=== PATIENT | female | born 1975 | race Caucasian/White ===

== ENCOUNTER → 2020-11-15 07:32 | Outpatient (CLI) | payer OTHER, SELFPAY ==
--- NOTE | 2020-11-15 | CA_ITS ---
APPROVED REPORT Exam: Exercise Treadmill Technologist: Kayce Snider, Ht: 5 ft 5 in Wt: 290 lbs BSA: 2.32 m2 HR: 94 bpm BP: 163/80 mmHg Medical History Medications: Omeprazole,,,,, Lasix,,,,, PaXIL,,,,, Provigil,,,,, Stress Test Details Test: Jimmie HR Resting HR: 96 bpm Max Heart Rate (APMHR): 175.667800 bpm Max HR Achieved: 155 bpm Target HR (85% APMHR): 148.664966 bpm % of APMHR: 88.57 Recovery HR: 102 bpm BP Resting BP: 175/100 mmHg Max BP: 222/100 mmHg Recovery BP: 164.0/94.0 mmHg ECG Resting ECG: NSR, normal Clinical Exercise duration: 02:36 min Highest Stage Achieved: Exercise capacity: 4.6 METs Stress ECG Conclusion Exercised 2:36 on Jimmie Protocol, stopping at Pt request due to SOA. Max HR 155 % of PM 89% Max BP 222/100 MET's 4.6 Test stopped due to SOA Symptoms: SOA/dyspnea and chest tightness. Arrhythmias/Ectopy: None. ST-T Changes: 1.5-2.0mm horizontal ST depression laterally and 1mm horizontal ST depression inferiorly. Conclusion: (+) GXT HTN Very poor exercise tolerance GXT only (no imaging) Test Summary REST . . . . . . . Sitting REST . . . . . . . Standing REST 06:55 0.0 0.0 96 . 175/100 . . Stage 1 01:00 10.0 1.7 120 . . . . Stage 1 02:00 10.0 1.7 144 . . . . Stage 1 02:36 10.0 1.7 150 . . . Stop exercise at 02:36 RECOVERY 01:00 0.0 0.0 135 . . . . RECOVERY 02:00 0.0 0.0 119 . 222/100 . . RECOVERY 03:00 0.0 0.0 109 . 222/100 . . RECOVERY 04:00 0.0 0.0 101 . 188/ 96 . . RECOVERY 05:00 0.0 0.0 92 . 188/ 96 . . RECOVERY 06:00 0.0 0.0 101 . 174/ 92 . . RECOVERY 07:00 0.0 0.0 94 . 174/ 92 . . RECOVERY 08:00 0.0 0.0 101 . 164/ 94 . . RECOVERY 09:00 0.0 0.0 95 . 164/ 94 . . RECOVERY 10:00 0.0 0.0 97 . 164/ 94 . . RECOVERY 11:00 0.0 0.0 101 . 164/ 94 . . RECOVERY 11:37 0.0 0.0 100 . 164/ 94 . . Electronically signed by : Brennan Pretty, 11/18/2020 11:08:58
== END ==
PROVIDERS: PCP Nurse Practitioner Family; Visit Provider Nurse Practitioner Family
DX: R06.02 Shortness of breath (principal)
CPT/HCPCS: 93017; 93306

== ENCOUNTER → 2020-11-27 17:15 | Outpatient (CLI) | payer OTHER, SELFPAY ==
[2020-11-27 18:24] LABS: Basophils # 0.1 K/mm3 (0-0.2); Basophils % 0.5 % (0.1-2.0); Eosinophils # 0.4 K/mm3 (0.0-0.4); Eosinophils % 2.5 % (0.1-12.0); Hematocrit 38.9 % (37.0-47.0); Lymphocytes # 2.6 K/mm3 (0.7-4.5); Lymphocytes % 17.2 % (10-50); Mean Corpuscular HGB Conc 33.3 g/dL (31.8-35.4); Mean Corpuscular Hemoglobin 29.4 pg (27.0-31.2); Mean Corpuscular Volume 88.4 fl (81-99); Mean Platelet Volume 7.6 fl (7.4-10.4); Monocytes # 0.7 K/mm3 (0.1-1.0); Monocytes % 4.4 % (1.7-9.3); Neutrophils # 11.4 K/mm3 (1.8-7.8); Neutrophils % 75.5 % (37.0-80.0); Platelet Count 452 K/mm3 (142-424); Red Cell Distribution Width 14.1 % (11.5-17.5); White Blood Count 15.1 K/mm3 (4.8-10.8)
[2020-11-27 18:39] LABS: MANUAL DIFFERENTIAL MANUAL DIFFERENTIAL (MANUAL DIFF)
[2020-11-27 19:03] LABS: Anion Gap 13.4 mEq/L (5-15); Blood Urea Nitrogen 13 mg/dl (7-17); Calcium 9.6 mg/dl (8.4-10.2); Carbon Dioxide 28 mmol/L (22.0-30.0); Chloride 98 mmol/L (98-107); Estimated Glomerular Filt Rate 90 ml/min (>60); GFR (African American) 109 ML/MIN (>60); Glucose 99 mg/dl (74-100); Potassium 4.4 mmoL/L (3.5-5.1); Sodium 135 mmol/L (136-145)
[2020-11-27 19:47] LABS: Eosinophils % 2 % (0-3); Lymphocytes % 16 % (10-50); Monocytes % 6 % (2-9); Neutrophils % 76 % (42-76); Total Cells Counted 100
[2020-11-27 19:48] LABS: Platelet Estimate Slight Increase
== END ==
PROVIDERS: Visit Provider Physician Assistant
DX: I20.9 Angina pectoris, unspecified (principal); I10 Essential (primary) hypertension; R63.5 Abnormal weight gain; R94.31 Abnormal electrocardiogram [ECG] [EKG]; R94.39 Abnormal result of other cardiovascular function study; Z78.9 Other specified health status; Z82.49 Family history of ischemic heart disease and other diseases of the circulatory system
CPT/HCPCS: 36415; 80048; 85007; 85025

== ENCOUNTER 2020-11-29 08:21 | Day surgery (SDC) | payer OTHER, SELFPAY ==
[2020-11-29] VITALS (12 sets, daily range): BP systolic 104–150; BP diastolic 58–90; PULSE 68–80; RESP 12–17; TEMP 36.9; O2SAT 93–96; BMI 48.7
--- NOTE | 2020-11-29 07:13 | IR_ITS ---
APPROVED REPORT Patient Location: Outpatient Speech Instructor: VERONIQUE Medrano RT (R) PROCEDURES Left heart catheterization Left ventriculogram Selective coronary angiogram INDICATION Crescendo angina, Abnormal stress test Informed consent was obtained prior to the procedure. COMPLICATIONS NONE Estimated Blood Loss: LESSS THAN 10 ML TECHNIQUE One percent lidocaine used to anesthetize the right anterior aspect of the wrist. The right radial artery was accessed via the Seldinger technique. A 6 Lithuanian sheath was placed in the right radial artery. 2.5 mg of verapamil, 800 mcg of nitroglycerin, 1mg Lidocaine and 5000 U Heparin were given through the arterial sheath. The trap catheter 4 Lithuanian JL4 and then a 5 Lithuanian JL 3.5 catheter were also used to perform left heart catheterization, left ventriculogram and selective coronary angiogram. At the end of the procedure the sheath was removed good hemostasis was achieved using Traclet band, patient was transferred to the postop holding area in stable condition. ANGIOGRAPHIC RESULTS The left main artery Normal The left anterior descending artery Normal The circumflex artery Normal The right coronary artery Dominant normal The GRAMAJO ventriculogram reveals Normal 65% The left ventricular end-diastolic pressure Elevated at 30 mmHg IMPRESSION Normal coronary arteries Normal ejection fraction Severely elevated LVEDP consistent with severe diastolic dysfunction which is the etiology for patient's angina PLAN 1. Fluid and salt restriction with specific attention at eliminating soft drinks/pop 2. Treatment of diastolic dysfunction 3. Weight loss 4. Evaluation of sleep apnea Electronically signed by : Jon Waggoner, 11/29/2020 10:24:17
== END 2020-11-29 12:25 | disposition home or self-care (01) ==
LOC: CATHLAB 08:22
PROVIDERS: PCP Nurse Practitioner Family; Visit Provider Internal Medicine
DX: I20.0 Unstable angina (principal); I10 Essential (primary) hypertension; R94.31 Abnormal electrocardiogram [ECG] [EKG]; Z82.49 Family history of ischemic heart disease and other diseases of the circulatory system; Z87.891 Personal history of nicotine dependence
CPT/HCPCS: 93458; 99152; 99153; C1725; C1769; J1644; Q9967

== ENCOUNTER → 2020-12-05 16:02 | Outpatient (CLI) | payer OTHER, SELFPAY ==
[2020-12-05 19:15] LABS: Anion Gap 15.1 mEq/L (5-15); Blood Urea Nitrogen 11 mg/dl (7-17); Calcium 9.1 mg/dl (8.4-10.2); Carbon Dioxide 29 mmol/L (22.0-30.0); Chloride 98 mmol/L (98-107); Estimated Glomerular Filt Rate 68 ml/min (>60); GFR (African American) 82 ML/MIN (>60); Glucose 94 mg/dl (74-100); Potassium 4.1 mmoL/L (3.5-5.1); Sodium 138 mmol/L (136-145)
== END ==
PROVIDERS: Visit Provider Urology
DX: R06.00 Dyspnea, unspecified (principal); I10 Essential (primary) hypertension; R94.31 Abnormal electrocardiogram [ECG] [EKG]; F17.200 Nicotine dependence, unspecified, uncomplicated; Z78.9 Other specified health status
CPT/HCPCS: 36415; 80048

== ENCOUNTER → 2020-12-18 15:25 | Outpatient (CLI) | payer OTHER, SELFPAY | PROVIDERS: PCP Nurse Practitioner Family; Visit Provider Urology | DX: G47.33 Obstructive sleep apnea (adult) (pediatric) (principal); R06.00 Dyspnea, unspecified; R40.0 Somnolence; R06.83 Snoring | CPT/HCPCS: G0399 ==

== ENCOUNTER → 2021-02-26 13:33 | Outpatient (CLI) | payer OTHER, SELFPAY ==
--- NOTE | 2021-02-26 13:33 | MR_ITS ---
PROCEDURE: MR LUMBAR SPINE WO CON CLINICAL INDICATION: Low back pain Bilateral leg pain COMPARISON: No exams were available for comparison TECHNIQUE: Standard multiplanar multiecho sequences are performed without contrast. 3-D MIP and myelographic images are also rendered and reviewed FINDINGS: There is normal alignment. Spinal cord ends at the L1 level. No acute fracture or dislocation. L1-L2: Unremarkable. L2-L3: Mild degenerative disc disease with minimal bulging disc and mild facet and ligamentum hypertrophy with mild bilateral lateral recess narrowing with mild canal stenosis L3-L4: Mild facet and ligamentum hypertrophy with mild bilateral lateral recess narrowing with mild canal stenosis L4-5: Mild facet and ligamentum hypertrophic change with mild bilateral lateral recess narrowing and mild bilateral foraminal narrowing with mild canal stenosis. L5-S1: Minimal bulging disc with facet and ligamentum hypertrophic change. There is a small left paracentral and a small foraminal disc protrusion contributing to the lateral recess narrowing on the left and also causing moderate left-sided foraminal narrowing. There is mild right foraminal narrowing. Canal stenosis noted at this level. No extruded herniated disc. 1.3 cm lipoma is present involving the L1 vertebral body On the most inferior axial images there is a complex rounded lesion measuring 5.9 cm. This could represent an unusual loop of bowel or an ovarian mass. Suggest pelvic ultrasound for further evaluation. IMPRESSION: 1. Mild multilevel lumbar spondylosis with facet and ligamentum hypertrophy and lateral recess and foraminal narrowing and multilevel mild canal stenosis. Please see above for detailed description at each level. No extruded herniated disc. 2. Possible right adnexal mass incompletely imaged versus unusual bowel loop. Pelvic ultrasound suggested for further evaluation. Dictated by: Tomi Leon MD 02/28/2021 07:32 Tomi Leon MD in [facility] 02/28/2021 07:32
== END ==
PROVIDERS: PCP Nurse Practitioner Family; Visit Provider Nurse Practitioner Family
DX: M54.5 Low back pain (principal); M54.9 Dorsalgia, unspecified
CPT/HCPCS: 72148; 76376

== ENCOUNTER → 2021-03-16 13:35 | Outpatient (CLI) | payer OTHER, SELFPAY ==
--- NOTE | 2021-03-16 13:39 | US_ITS ---
PROCEDURE: US TRANSVAGINAL CLINICAL INDICATION: abd pain Possible pelvic mass on recent MRI COMPARISON: MR MR LUMBAR SPINE WO CON from 02/26/2021 FINDINGS: UTERUS: 7cm x 5cmx 4cm with a combined endometrial thickness of 7.6mm. Nonspecific areas of increased echogenicity noted within the endometrium. LEFT OVARY: 8hcs6upd3.2cm with a volume of 8.6ml. 1.5 cm simple left ovarian cyst. RIGHT OVARY: There is a complex mass in the right adnexa measuring 9 x 6 cm with central increased echogenicity with some mild posterior shadowing and peripheral I so echogenicity. A dermoid tumor is considered. CT suggested for further evaluation and confirmation. No cul-de-sac fluid evident.. IMPRESSION: 9 x 6 cm right adnexal mass as described above which may represent a dermoid tumor. Suggest CT without and with contrast for further evaluation and confirmation. Nonspecific areas of increase echogenicity of the endometrium Dictated by: Tomi Leon MD 03/19/2021 09:51 Tomi Leon MD in [facility] 03/19/2021 09:51
== END ==
PROVIDERS: PCP Nurse Practitioner Family; Visit Provider Nurse Practitioner Family
DX: R10.9 Unspecified abdominal pain (principal)
CPT/HCPCS: 76830

== ENCOUNTER → 2021-03-20 09:53 | Outpatient (POV) | payer OTHER, SELFPAY ==
[2021-03-20 10:11] VITALS: BP 120/76; PULSE 75; RESP 18; O2SAT 95; BMI 45.7
--- NOTE | 2021-03-20 11:06 | HMH.PMCON ---
Assessment and Plan (1) Degenerative joint disease (DJD) of lumbar spine Status: Chronic Category: Medical Code(s): M47.816 - Spondylosis without myelopathy or radiculopathy, lumbar region (2) Lumbar radiculopathy Status: Chronic Category: Medical Code(s): M54.16 - Radiculopathy, lumbar region - Assessment and plan all Dx Assessment and Plan for all problems:: Patient is a 46-year-old white female who is here for low back pain with radiation into bilateral buttock and legs. She is not having any numbness or tingling, no changes in bowel or bladder habit, and no saddle anesthesia. Patient and I did discuss her MRI today. The MRI was performed on 02/26/2021. Per the MRI report, L5-S1?there is a small left paracentral and small foraminal disc protrusion current with lateral recess narrowing on the left and moderate left-sided foraminal narrowing. Canal stenosis was noted at that level. She was also noted to have mild facet and ligamentum hypertrophy throughout her lumbar spine, however, patient was negative for a Kemps test today. She was also negative for sacroiliitis. Patient gets relief with leaning forward. She does have pain in the low back bilateral buttock and into her legs stopping at the knee area. Patient is very nervous about undergoing injective therapy. She has tried physical therapy at the facility that she currently works. She has not gotten any significant relief. She does continue with home stretching. She has also tried ice and heat therapies. The patient is having spasms to her low back area. We will order her Flexeril 5 mg 1 tablet p.o. 3 times daily as needed for pain. Due to the patient's fear of the injection we discussed taking a one-time dose of Valium p.o. prior to her injection?1 hour. She would like to try this before the injection. She is not on any anticoagulation therapy. She is not diabetic. We will schedule her for a lumbar epidural steroid injection at the L5-S1 area. We will see the patient back afterwards for reevaluation symptoms. Possible side effects of corticosteroids have been discussed with the patient. Risks and benefits of the procedure have been explained to the patient. Patient would like to proceed with the procedure. Patient has been instructed to contact the clinic with any concerns before the next appointment. Dr. Magana has reviewed this note and agrees with this plan of care. This note was dictated using voice recognition software and make contain errors or omissions. HPI - Data of Consult Patient: new to practice Consult date: 03/20/21 Requesting Physician: Reva Morgan APRN - Consult Narrative Reason for consult: Low back pain History of present illness: Ms. Oliver is a 46 year old female who presents today for consultation for low back pain with radiation into lower extremities. Patient was referred by Joseph Villanueva APRN. The patient says that she has had chronic low back pain for years, however, in September 2020 the patient's pain significantly increased. 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 The pain is extreme in nature with a throbbing sensation that feels like loss of blood flow to the area . She reports that she recently stopped smoking. She was diagnosed with severe diastolic dysfunction. As well, she was diagnosed with GALA and Covid. Due to recent diagnoses, she has put her back pain on the back burner. She is now following up to try to get treatment for her low back area. She did have an MRI of her lumbar spine on 02/26/2021. She is attempted physical therapy in the facility that she works for more than 6 weeks and has gotten no significant relief. She has attempted home stretching as well as ice and heat. She does use ibuprofen and Tylenol with no significant relief. Patient does report that more
== END ==
PROVIDERS: Visit Provider Clinical Nurse Specialist Family Health
DX: M47.896 Other spondylosis, lumbar region (principal); M54.16 Radiculopathy, lumbar region
CPT/HCPCS: 99202; G0463

== ENCOUNTER → 2021-03-20 14:54 | Outpatient (CLI) | payer OTHER, SELFPAY ==
[2021-03-22 04:08] LABS: Cancer Antigen (CA) 125 14.3 U/mL (0.0-38.1); Estradiol 47.2 pg/mL (.); FSH 7.1 mIU/mL (.); Progesterone 0.3 ng/mL (.)
[2021-03-22 05:30] LABS: CA 19-9 50 U/mL (0-35)
== END ==
PROVIDERS: Visit Provider Obstetrics & Gynecology
DX: N94.89 Other specified conditions associated with female genital organs and menstrual cycle (principal)
CPT/HCPCS: 36415; 82670; 83001; 83002; 84144; 86316

== ENCOUNTER → 2021-03-28 09:24 | Outpatient (CLI) | payer OTHER, SELFPAY ==
--- NOTE | 2021-03-28 09:24 | CT_ITS ---
PROCEDURE: CT ABDOMEN PELVIS WO/W CON CLINICAL INDICATION: adnexal mass COMPARISON: US US TRANSVAGINAL from 03/16/2021 TECHNIQUE: IV Contrast: 75ML Isovue 370 Oral Contrast None Axial images obtained with sagittal and coronal reformats. All CT scans at the facility use one or more dose reduction, viz: automated exposure control, ma/kV adjustment per patient size (including targeted exams where dose is matched to indication, i.e. head), or iterative reconstruction technique. FINDINGS: LOWER THORAX: Minimal atelectatic or fibrotic change in the left lung base medially ABDOMEN & PELVIS: The liver, spleen, adrenal glands, and pancreas have an unremarkable appearance. There is some increased density along the fundus of the gallbladder anteriorly which could be due to small adherent stone or polyp. No intestinal obstruction or free air. There is thickening of the gastric mucosa possibly due to nondistention. No intestinal obstruction or free air. Unremarkable appendix. Nonobstructing 4 mm stone is present in the lower pole of the left kidney. No ureteral calculi. No hydronephrosis. A mixed fat soft tissue and calcium containing mass is present in the right adnexa measuring 7.5 cm AP, 7.2 cm transverse, and 6.3 cm cephalad caudad consistent with a mature cystic teratoma emanating from the right ovary. This lesion is well-circumscribed with central coarse calcification and may represent primordial teeth. No pelvic fluid collections. There are degenerative changes in the lower thoracic spine. No acute bony findings. IMPRESSION: 7 cm right adnexal mass as described above consistent with mature cystic teratoma Nonobstructing 4 mm left renal calculus. Possible small gallstone or polyp at the fundus of the gallbladder which could be confirmed with ultrasound if clinically warranted Dictated by: Tomi Leon MD 03/29/2021 09:08 Tomi Leon MD in [facility] 03/29/2021 09:08
== END ==
PROVIDERS: PCP Nurse Practitioner Family; Referring Provider Obstetrics & Gynecology; Visit Provider Nurse Practitioner Family
DX: N94.89 Other specified conditions associated with female genital organs and menstrual cycle (principal); R93.89 Abnormal findings on diagnostic imaging of other specified body structures
CPT/HCPCS: 74178; Q9967

== ENCOUNTER → 2021-05-06 15:58 | Outpatient (CLI) | payer OTHER, SELFPAY ==
[2021-05-06 17:20] LABS: Chloride 102 mmol/L (98-107); Sodium 136 mmol/L (136-145)
[2021-05-06 17:21] LABS: Potassium 3.4 mmoL/L (3.5-5.1)
[2021-05-06 17:23] LABS: Alanine Aminotransferase 23 U/L (12-78); Alkaline Phosphatase 83 U/L (38-126); Aspartate Amino Transferase 36 U/L (14-36); Bilirubin,Total 0.3 mg/dl (0.2-1.3); Blood Urea Nitrogen 6 mg/dl (7-17); Estimated Glomerular Filt Rate 90 ml/min (>60); GFR (African American) 109 ML/MIN (>60)
[2021-05-06 17:24] LABS: Albumin Level 4.2 g/dl (3.5-5.0); Albumin/Globulin Ratio 1.4 (1.1-1.8); Anion Gap 11.4 mEq/L (5-15); Calcium 9.3 mg/dl (8.4-10.2); Carbon Dioxide 26 mmol/L (22.0-30.0); Glucose 105 mg/dl (74-100); Total Protein,Serum 7.2 g/dl (6.3-8.2)
[2021-05-06 17:29] LABS: Basophils # 0.1 K/mm3 (0-0.2); Basophils % 0.5 % (0.1-2.0); Eosinophils # 0.4 K/mm3 (0.0-0.4); Hematocrit 38.2 % (37.0-47.0); Hemoglobin 12.8 g/dL (12.2-16.2); Lymphocytes # 2.2 K/mm3 (0.7-4.5); Lymphocytes % 10.7 % (10-50); Mean Corpuscular HGB Conc 33.6 g/dL (31.8-35.4); Mean Corpuscular Hemoglobin 29.8 pg (27.0-31.2); Mean Corpuscular Volume 88.8 fl (81-99); Monocytes % 4.8 % (1.7-9.3); Neutrophils # 16.9 K/mm3 (1.8-7.8); Neutrophils % 81.9 % (37.0-80.0); Platelet Count 478 K/mm3 (142-424); Red Cell Distribution Width 13.8 % (11.5-17.5); White Blood Count 20.7 K/mm3 (4.8-10.8)
[2021-05-06 17:31] LABS: MANUAL DIFFERENTIAL MANUAL DIFFERENTIAL (MANUAL DIFF)
[2021-05-06 18:00] LABS: Eosinophils % 1 % (0-3); Lymphocytes % 11 % (10-50); Monocytes % 3 % (2-9); Neutrophils % 85 % (42-76); Platelet Estimate Slight Increase; RBC Morphology Normal; Total Cells Counted 100
--- NOTE | 2021-05-08 14:55 | PC.NURSE ---
pt. notified of positive test result.
== END ==
PROVIDERS: PCP Nurse Practitioner Family; Visit Provider Obstetrics & Gynecology
DX: Z01.818 Encounter for other preprocedural examination (principal); Z11.52 Encounter for screening for COVID-19; U07.1 COVID-19
CPT/HCPCS: 36415; 80053; 85007; 85025; 86850; C9803; U0003; U0005

== ENCOUNTER → 2021-05-09 11:27 | Outpatient (CLI) | payer OTHER, SELFPAY ==
--- NOTE | 2021-05-09 11:29 | XR_ITS ---
PROCEDURE: XR CHEST 2V CLINICAL HISTORY: Elevated WBC COMPARISON: No exams were available for comparison FINDINGS: The cardiomediastinal silhouette and pulmonary vascularity are within normal limits. The lungs are clear without infiltrates, suspicious nodules, or pleural effusions. Mild degenerative changes thoracic spine. Minimal thoracic curvature convex right.. IMPRESSION: No acute findings. Dictated by: Tomi Leon MD 05/09/2021 13:00 Tomi Leon MD in [facility] 05/09/2021 13:00
== END ==
PROVIDERS: PCP Nurse Practitioner Family; Visit Provider Nurse Practitioner Family
DX: D72.829 Elevated white blood cell count, unspecified (principal)
CPT/HCPCS: 71046

== ENCOUNTER → 2021-05-09 15:46 | Outpatient (CLI) | payer OTHER, SELFPAY ==
[2021-05-09 16:01] LABS: Basophils # 0.3 K/mm3 (0-0.2); Basophils % 1.5 % (0.1-2.0); Eosinophils # 0.4 K/mm3 (0.0-0.4); Eosinophils % 2.2 % (0.1-12.0); Hematocrit 41.7 % (37.0-47.0); Hemoglobin 13.7 g/dL (12.2-16.2); Lymphocytes # 2.1 K/mm3 (0.7-4.5); Lymphocytes % 12.9 % (10-50); Mean Corpuscular HGB Conc 32.8 g/dL (31.8-35.4); Mean Corpuscular Hemoglobin 29.6 pg (27.0-31.2); Mean Corpuscular Volume 90.2 fl (81-99); Mean Platelet Volume 9.5 fl (7.4-10.4); Monocytes # 0.9 K/mm3 (0.1-1.0); Monocytes % 5.3 % (1.7-9.3); Neutrophils % 78.2 % (37.0-80.0); Platelet Count 559 K/mm3 (142-424); Red Blood Count 4.62 M/mm3 (4.20-5.40); White Blood Count 16.6 K/mm3 (4.8-10.8)
[2021-05-09 16:03] LABS: MANUAL DIFFERENTIAL MANUAL DIFFERENTIAL (MANUAL DIFF)
[2021-05-09 16:48] LABS: C-Reactive Protein 31.6 mg/L (0-4)
[2021-05-09 17:08] LABS: Erythrocyte Sedimentation Rate 26 mm/hr (0-20)
[2021-05-09 18:10] LABS: Eosinophils % 1 % (0-3); Lymphocytes % 22 % (10-50); Monocytes % 3 % (2-9); Neutrophils % 74 % (42-76); Platelet Estimate Moderate Increase; RBC Morphology Normal; Total Cells Counted 100
== END ==
PROVIDERS: Visit Provider Nurse Practitioner Family
DX: Z20.822 Contact with and (suspected) exposure to COVID-19 (principal); D72.829 Elevated white blood cell count, unspecified
CPT/HCPCS: 85007; 85025; 85651; 86140; 87086; C9803; U0003; U0005

== ENCOUNTER → 2021-05-29 09:12 | Outpatient (CLI) | payer OTHER, SELFPAY ==
[2021-05-29 09:40] LABS: Basophils # 0.1 K/mm3 (0-0.2); Basophils % 0.6 % (0.1-2.0); Eosinophils # 0.3 K/mm3 (0.0-0.4); Eosinophils % 2.4 % (0.1-12.0); Hematocrit 41.2 % (37.0-47.0); Hemoglobin 13.4 g/dL (12.2-16.2); Lymphocytes # 2.2 K/mm3 (0.7-4.5); Lymphocytes % 15.5 % (10-50); Mean Corpuscular HGB Conc 32.6 g/dL (31.8-35.4); Mean Corpuscular Hemoglobin 28.8 pg (27.0-31.2); Mean Corpuscular Volume 88.6 fl (81-99); Monocytes # 0.8 K/mm3 (0.1-1.0); Monocytes % 5.3 % (1.7-9.3); Neutrophils % 76.2 % (37.0-80.0); Platelet Count 503 K/mm3 (142-424); Red Blood Count 4.65 M/mm3 (4.20-5.40); Red Cell Distribution Width 13.5 % (11.5-17.5); White Blood Count 14.4 K/mm3 (4.8-10.8)
[2021-05-29 10:39] LABS: Alanine Aminotransferase 20 U/L (12-78); Albumin Level 4.1 g/dl (3.5-5.0); Albumin/Globulin Ratio 1.4 (1.1-1.8); Alkaline Phosphatase 80 U/L (38-126); Aspartate Amino Transferase 23 U/L (14-36); Bilirubin,Total 0.3 mg/dl (0.2-1.3); Blood Urea Nitrogen 7 mg/dl (7-17); Calcium 9.7 mg/dl (8.4-10.2); Carbon Dioxide 30 mmol/L (22.0-30.0); Chloride 100 mmol/L (98-107); Estimated Glomerular Filt Rate 90 ml/min (>60); GFR (African American) 109 ML/MIN (>60); Globulin 2.9 g/dL (1.3-3.2); Glucose 108 mg/dl (74-100); Sodium 135 mmol/L (136-145)
[2021-05-29 11:10] LABS: Phencyclidine Screen,Urine Negative ng/ml (<25)
[2021-05-29 11:13] LABS: Amphetamine/Metha Screen,Urine Negative ng/ml (<1000); HCG,Quantitative < 2 mIU/ml (0-5.42)
[2021-05-29 11:15] LABS: Barbiturates Screen,Urine Negative ng/ml (<200)
[2021-05-29 11:16] LABS: Benzodiazepines Screen,Urine Negative ng/ml (<200)
[2021-05-29 11:17] LABS: Cannabinoid Screen,Urine Negative ng/ml (<50); Cocaine Screen,Urine Negative ng/ml (<300)
[2021-05-29 11:18] LABS: Methadone Screen,Urine Negative ng/ml (<300); Opiate Screen,Urine Positive ng/ml (<300)
== END ==
PROVIDERS: Visit Provider Obstetrics & Gynecology
DX: Z01.818 Encounter for other preprocedural examination (principal); N92.0 Excessive and frequent menstruation with regular cycle
CPT/HCPCS: 36415; 80053; 80305; 84702; 85025

== ENCOUNTER 2021-05-31 06:18 | Inpatient (IN) | payer OTHER, SELFPAY ==
[2021-05-02 12:46] VITALS: BMI 44.1
[2021-05-30 10:14] VITALS: BMI 44.1
--- NOTE | 2021-05-30 10:16 | SUR.PREOP ---
Dr. Rausch notified via phone of + drug screen and elevated WBC
[2021-05-31] VITALS (23 sets, daily range): BP systolic 89–137; BP diastolic 43–84; PULSE 63–88; RESP 13–18; TEMP 36.1–43; O2SAT 92–96
[2021-05-31 06:30] LABS: Coronavirus 19, PCR Not Detected (NotDetected); Influenza A, PCR Not Detected (NotDetected); Influenza B, PCR Not Detected (NotDetected)
--- NOTE | 2021-05-31 07:19 | HMH.ANESCL ---
[facility] Anesthesia Checklist - Patient Identification Patient Identification: Arm Band - Structural Data Admitted From: Home Planned Operative Procedure/s: REYNOLD Consent for Planned Operative Procedure(s) Verified: Yes - NPO Status Verified Time NPO: 00:00 - Additional verifications Anesthesia Reactions: No Hx Blood Transfusions: No Blood Transfusion Reaction: No - Airway Assessment C-Spine Mobility Assessed: Yes TMJ Mobility Assessed: Yes Dentition: Edentulous - Neurological Assessment Level of Consciousness: Awake Hx Seizures: No Numbness or tingling in extremities: No - Anesthesia Plan Anesthesia Risk discussed: Yes Anesthesia Plan: Verified ASA Class: III Anesthesia Type: General [facility] History I have reviewed the patient's past medical history: Yes Medical History: Reports:: Anxiety, Asthma, Chronic Obstructive Pulmonary Disease (COPD), Coronary Artery Disease, Depression, Hypertension, Kidney Stones, Migraine, Palpitations, Urinary Tract Infection Denies:: Cancer, Diabetes Mellitus Type 1, Diabetes Mellitus Type 2, Internal Pacemaker, MRSA, Seizures *Have you ever received a pneumonia vaccine?: No *Have you received a flu vaccine this season?: No Other Medical History: Reports: Arthritis, Other (Diastolic dysfuction). Denies: Blood Transfusion Reaction Anesthesia experience/problems:: None Laterality Cases: Left: Arthroscopy Knee, Bilateral: Tonsillectomy Other Surgeries: Yes: Cardiac Catheterization, , Hernia Repair, Other. No: Pacemaker Amputation: No Fractures: No - *Social History Last grade of school completed: High school graduate Smoking Status: Current every day smoker Tobacco Type: cigarettes # Packs/Day (cigarettes): 1 Alcohol Intake: current Alcohol Intake Frequency:: holidays/special occasions only Substance Use Type: denies use *Occupational Status:: employed Housing: house Household Members: spouse *Travel in the last 8 weeks: None - Psychiatric History Pschychiatric History:: Reports:: Anxiety, Depression Family Hx:: Coronary Artery Disease, Diabetes
--- NOTE | 2021-05-31 07:38 | HMH.HP ---
*Admission Date: 05/31/21 *Chief complaint: Pelvic Mass, Heavy Menstrual Bleeding *History of present illness: 46 yo Pelvic mass on ultrasound 03/16/21: 9x6cm, complex Mass appearance consistent with dermoid Follow up CT 03/28 showed mixed fatty softy tissue and calcium containing mass in right adnexa measuring 7.5x7.2x6.3cm mass c/w mature cystic teratoma Patient reports that she has known about this suspected dermoid tumor for several years, after evaluation at [place] in [facility] She is having pelvic pain and is ready to have mass removed; she declines to preserve normal left ovary She is also heavy bleeding and would like uterus removed at same time She was counseled extensively about the differences between a laparotomy with oophorectomy and a REYNOLD/BSO, along with the increased surgical risks posed by her obesity, previous 3 c sections and chronic tobacco abuse She was counseled regarding surgical menopause and the option of starting estrogen postoperatively; she declines to begin hormone therapy at this time and will reassess at office postop visit This surgery was originally scheduled for April 2021, but was cancelled because of positive covid test with preop labs She was asymptomatic at the time, but WBC was 20.1 on 05/06/21 She was sent to PCP for evaluation and preop clearance CXR was negative and WBC has trended downward since that time: 16.6 on 05/09 and 14.4 [facility] History I have reviewed the patient's past medical history: Yes Medical History: Reports:: Anxiety, Asthma, Chronic Obstructive Pulmonary Disease (COPD), Coronary Artery Disease, Depression, Hypertension, Kidney Stones, Migraine, Palpitations, Urinary Tract Infection Denies:: Cancer, Diabetes Mellitus Type 1, Diabetes Mellitus Type 2, Internal Pacemaker, MRSA, Seizures *Have you ever received a pneumonia vaccine?: No *Have you received a flu vaccine this season?: No Other Medical History: Reports: Arthritis, Other (Diastolic dysfuction). Denies: Blood Transfusion Reaction Anesthesia experience/problems:: None Laterality Cases: Left: Arthroscopy Knee, Bilateral: Tonsillectomy Other Surgeries: Yes: Cardiac Catheterization, , Hernia Repair, Other. No: Pacemaker Amputation: No Fractures: No - *Social History Last grade of school completed: High school graduate Smoking Status: Current every day smoker Tobacco Type: cigarettes # Packs/Day (cigarettes): 1 Alcohol Intake: current Alcohol Intake Frequency:: holidays/special occasions only Substance Use Type: denies use *Occupational Status:: employed Housing: house Household Members: spouse *Travel in the last 8 weeks: None - Psychiatric History Pschychiatric History:: Reports:: Anxiety, Depression Family Hx:: Coronary Artery Disease, Diabetes Review of Systems - Review of Systems Review of systems:: pertinent systems reviewed and negative unless documented below - *Genitourinary Reports heavy periods, Reports pelvic pain Meds Home Medications Medication Instructions Recorded Confirmed Type modafinil 100 mg tablet 100 mg PO DAILY 11/07/20 05/31/21 History omeprazole 40 mg capsule,delayed 40 mg PO DAILY 11/07/20 05/31/21 History release alprazolam 0.5 mg tablet 0.5 mg PO TID PRN 11/20/20 05/31/21 History paroxetine HCl 10 mg tablet 10 mg PO DAILY tab 11/20/20 05/31/21 History Spironolactone [Aldactone 100mg 100 mg PO DAILY 11/29/20 05/31/21 History Tab] desvenlafaxine succinate 50 mg 50 mg PO DAILY 03/28/21 05/31/21 History tablet,extended release 24 hr furosemide 80 mg tablet 40 mg PO DAILY tab 03/28/21 05/31/21 History Umeclidinium Brm/Vilanterol Tr 1 inh INHALATION DAILY 05/02/21 05/31/21 History [Anoro Ellipta] bisoproloL fumarate [Bisoprolol 5 mg PO DAILY 05/02/21 05/31/21 History Fumarate] albuterol sulfate 90 mcg/actuation 1 inh INHALATION Q6H PRN #8.5 g 05/25/21 05/31/21 Rx aerosol inhaler Hydrocodone/Acetaminophen 1 tab PO BID PRN 05/30/21 05/31/21 History [Hydrocodo
--- NOTE | 2021-05-31 09:06 | HMH.PHAINT ---
MEDICATION RECONCILIATION COMPLETE USING LIST FROM MD OFFICE AND EXTERNAL PHARMACY FILL/DEIDRE HISTORY.
--- NOTE | 2021-05-31 11:02 | HMH.ANESI ---
[facility] Anesthesia Record Part I Intake, IV Amount: 1,000 Estimated blood loss (mL): 200 Urine output (mL): 100 Blood Pressure: 106/56 SaO2: 92 Pulse Rate: 83 Respiratory Rate: 13 Temperature: 97 F Patient is:: Drowsy, Oral/Nasal airway Stable to PACU at:: 10:59
[2021-05-31 11:26] LABS: Microscopic,Cath URINE MICROSCOPIC (MICROSCOPIC)
[2021-05-31 11:34] LABS: Appearance,Urine/Cath CLOUDY (Clear); Bilirubin,Cath Negative (Negative); Blood, Urine/Cath 1+ (Negative); Color,Urine/Cath YELLOW (Yellow); Glucose,Urine/Cath (UA) Negative (Negative); Ketones,Urine/Cath Negative (Negative); Leukocyte Esterase,Cath Negative (Negative); Nitrate,Cath Negative (Negative); PH,Urine/Cath 6.5 (5.0-8.5); Protein,Urine/Cath Negative (Negative); Urobilinogen,Cath 0.2 EU/dl (0.2)
--- NOTE | 2021-05-31 11:34 | SUR.PHASEI ---
1129- detailed report given to reno aggarwal on OB unit at this time.
[2021-05-31 11:53] LABS: Amorphous Sediment,Ur/Cath 2+ /lpf; Bacteria,Urine/Cath 1+ /lpf
--- NOTE | 2021-05-31 12:51 | HMH.OPNOTE ---
Date of procedure: 05/31/21 Pre-op Diagnosis:: 1. Right adnexal mass 2. Heavy menstrual bleeding 3. Previous c section x 3 4. Morbid obesity 5. Tobacco abuse Post-op Diagnosis:: 1. Right adnexal mass 2. Heavy menstrual bleeding 3. Previous c section x 3 4. Morbid obesity 5. Tobacco abuse 6. Pelvic adhesions Procedure performed:: Exploratory laparotomy, supracervical hysterectomy, bilateral salpingo-oophorectomy. lysis of dense adhesions Surgeon:: Chioma Rausch MD RADIOSONDE SPECIALIST:: Pascale Jon Anesthesia: GETA Estimated blood loss (mL): 200 Operative findings:: 10cm right adnexal mass normal appearing left ovary dense vesico-uterine adhesions Operative note:: The patient was taken to the operating room and general anesthesia was administered without difficulty. She was prepped and draped in the supine position. A midline skin incision was made with a scalpel inferior to the umbilicus and carried down to the underlying layer of fascia. The fascia was incised in the midline and extended sharply. The rectus muscles were sharply dissected off the fascia and in the midline. The peritoneum was turned and sharply, with good visualization of the underlying structures. The peritoneal incision was extended bluntly. A survey of the patient's pelvis and abdomen revealed a large right adnexal mass and normal left ovary. The uterus was small, with dense vesicouterine adhesions. At this time, the patient was placed in Trendelenburg and an O'Kash-O'Collins retractor was placed in the abdomen; the bowel was packed with moist laparotomy sponges. While packing the bowel, some omental adhesions were taken down with sharp and blunt dissection. One 3cm piece of omentum was abnormally firm and was excised during the adhesion lysis. Because of the unusual texture of this specimen, it was also sent for pathology. The right adnexal mass was excised without complication using the Enseal. The mass appeared to be fat filled, consistent with a dermoid. A double tooth tenaculum was placed on the uterine fundus and the uterus was elevated out of the pelvis. No fibroids or other visible uterine lesions were noted, but the bladder was densely adhesed up to the lower uterine segment. The round ligaments were identified and transected and suture-ligated. The anterior lip of the broad ligament was dissected medially on both sides and the bladder flap was created digitally. Sharp and blunt dissection of the bladder was extensive, but uncomplicated. The posterior leaf of the broad ligament was dissected until the ureters were able to be identified on either side and noted to be free of the forthcoming adnexal pedicles. The left infundibulopelvic ligaments was doubly clamped transected and suture ligated, lateral to the ovary. The fallopian tube and ovary were excised and were set aside for pathology. The uterine arteries were skeletonized on either side, and were clamped, transected and suture ligated with excellent hemostasis. The bladder flap was further bluntly dissected off the lower uterine segment with excellent hemostasis and without injury to the bladder, however dense adhesions precluded successful dissection in order to remove the cervix with the uterus, so a decision was made to proceed with a supracervical hysterectomy. The uterus was amputated below the internal os and the uterus was set aside for pathology. The cervical stump was oversewn with 0-vicryl in an interrupted fashion. The pelvis was copiously irrigated with a solution of sterile water. All pedicles were reexamined and remained hemostatic. Surgicel was placed over the cervical stump. All instruments were removed from the patient's abdomen. The fascia was closed with 0 PDS in a running fashion. The subcutaneous fat was closed with 2-0 vicryl in an interrupted fashion. The skin was closed with psacual. Sponge/lap/needle and instrument counts were correct ?2. TAP block was place
--- NOTE | 2021-05-31 13:47 | PC.NURSE ---
11:30 Report received from Maggie RECORD PRESS TENDER.
--- NOTE | 2021-05-31 13:48 | PC.NURSE ---
11:43 Pt. arrived to room 279 via bed, accompanied by PACU staff x2. Nurse to room with pt. 11:45 Post-op Vitals started. Pt. reports pain only when coughing, denies needs, IS in room nurse educated pt. on use. Nurse educated pt. on Post-op routine. Pt. v/u. Pt. reports feeling sleepy, lights dimmed, will continue to monitor.
[2021-05-31 20:54] LABS: Hematocrit 35.9 % (37.0-47.0); Hemoglobin 11.3 g/dL (12.2-16.2)
--- NOTE | 2021-05-31 21:35 | PC.NURSE ---
Addendum entered by Blaine Rosenthal RN 05/31/21 21:36: MD notified at 2110 Original Note: Dr. Agosto notified of pts H&H. orders given to monitor urine output throughout the night and increase PO fluid intake and IV fluid infusion rate. Orders v/r
[2021-06-01] VITALS (8 sets, daily range): BP systolic 102–124; BP diastolic 52–66; PULSE 73–92; RESP 17–20; TEMP 36.4–37.1; O2SAT 95–97
--- NOTE | 2021-06-01 04:39 | PC.NURSE ---
Pt has slept in intervals this shift. Inspiratory wheezing throughout Rt side. Lungs CTA on Lt side. Bowel sounds present in all 4 quadrants. IV patent and infusing well. Midline dressing C/D/I. abdomen soft and tender. duarte in place and draining yellow urine. Thigh-high scuds in place. Pt is on RA and is tolerating PO liquids. Urine output has increased since beginning of the shift. Pt denies SOA, headache, N/V. Pt medicated this shift for pain per eMAR. VSS.
[2021-06-01 07:16] LABS: Basophils # 0.1 K/mm3 (0-0.2); Basophils % 0.4 % (0.1-2.0); Eosinophils # 0.1 K/mm3 (0.0-0.4); Eosinophils % 0.2 % (0.1-12.0); Hematocrit 34.6 % (37.0-47.0); Hemoglobin 10.9 g/dL (12.2-16.2); Lymphocytes # 1.9 K/mm3 (0.7-4.5); Mean Corpuscular HGB Conc 31.6 g/dL (31.8-35.4); Mean Corpuscular Hemoglobin 28.9 pg (27.0-31.2); Mean Corpuscular Volume 91.3 fl (81-99); Mean Platelet Volume 7.8 fl (7.4-10.4); Monocytes % 3.8 % (1.7-9.3); Neutrophils # 23.8 K/mm3 (1.8-7.8); Neutrophils % 88.6 % (37.0-80.0); Platelet Count 465 K/mm3 (142-424); Red Blood Count 3.79 M/mm3 (4.20-5.40); White Blood Count 26.8 K/mm3 (4.8-10.8)
[2021-06-01 07:32] LABS: MANUAL DIFFERENTIAL MANUAL DIFFERENTIAL (MANUAL DIFF)
[2021-06-01 07:53] LABS: Lymphocytes % 5 % (10-50); Monocytes % 1 % (2-9); Neutrophils % 94 % (42-76); Platelet Estimate Normal; Total Cells Counted 100
--- NOTE | 2021-06-01 10:02 | HMH.ACPN2 ---
Internal Medicine - PN: Subj *Date: 06/01/21 *Time: 10:03 Interval history: She is doing very well this morning. She is eating and drinking and ambulating. Her Concepcion catheter is out. She has put out a little more urine overnight. Her pain is reasonably well controlled. She does have some breakthrough pain and takes Percocets. She denies any nausea or vomiting. She denies any chest pain or shortness of breath. She denies any calf tenderness. Her incision is quite tender. Exam Vital signs and Labs for Last 24 Hours: Temp Pulse Resp BP Pulse Ox 98.7 F 88 18 118/57 L 95 06/01/21 04:00 06/01/21 04:00 06/01/21 04:00 06/01/21 04:00 06/01/21 09:34 Laboratory Results - last 24 hr 05/31/21 10:55: Urine Color Yellow, Urine Appearance Cloudy, Urine pH 6.5, Ur Specific [place] 1.020, Urine Protein Negative, Urine Glucose (UA) Negative, Urine Ketones Negative, Urine Blood 1+, Urine Nitrate Negative, Urine Bilirubin Negative, Urine Urobilinogen 0.2, Ur Leukocyte Esterase Negative, Urine RBC 3-5, Urine WBC 3-5, Ur Squamous Epith Cells 3-5, Urine Bacteria 1+ 05/31/21 20:45: Hgb 11.3 L, Hct 35.9 L 06/01/21 06:48: WBC 26.8 H* D, RBC 3.79 L, Hgb 10.9 L, Hct 34.6 L, MCV 91.3, MCH 28.9, MCHC 31.6 L, RDW 14.0, Plt Count 465 H, MPV 7.8, Neut % (Auto) 88.6 H, Lymph % (Auto) 7.0 L, [place] % (Auto) 3.8, Eos % (Auto) 0.2, Baso % (Auto) 0.4, Neut # (Auto) 23.8 H, Lymph # (Auto) 1.9, [place] # (Auto) 1.0, Eos # (Auto) 0.1, Baso # (Auto) 0.1, Total Counted 100, Neutrophils % (Manual) 94 H, Lymphocytes % (Manual) 5 L, Monocytes % (Manual) 1 L, Platelet Estimate Normal I & O for Last 24 hours: Intake & Output 12/21/21 12/22/21 12/23/21 12/24/21 11:59 11:59 11:59 11:59 Intake Total 1000 / 1000 Output Total 50 / 50 700 / 700 Balance 950 / 950 -700 / -700 Weight 265 lb - Constitutional no acute distress - *Routine HEENT Exam Head: Present: normocephalic Eye: Present: EOMI, PERRL ENT: Present: mucous membranes moist - *Routine Respiratory Exam Present: CTA bilaterally. Absent: accessory muscle use - *Routine Cardiovascular Exam Present: RRR - *Routine Abdominal Exam Present: soft, normoactive bowel sounds. Absent: tenderness Comments: Her incision is clean and dry. - *Routine Extremities Exam Absent: cyanosis, clubbing, edema, tenderness Assessment and Plan (1) Mass of uterine adnexa Status: Acute Category: Medical Code(s): N94.89 - Other specified conditions associated with female genital organs and menstrual cycle (2) Heavy menstrual bleeding Status: Acute Category: Medical Code(s): N92.0 - Excessive and frequent menstruation with regular cycle (3) Previous section Status: Acute Category: Surgical Code(s): Z98.891 - History of uterine scar from previous surgery (4) Morbid obesity with body mass index (BMI) of 45.0 to 49.9 in adult Status: Acute Category: Medical Code(s): E66.01 - Morbid (severe) obesity due to excess calories; Z68.42 - Body mass index [BMI] 45.0-49.9, adult (5) Tobacco dependence syndrome Status: Chronic Category: Medical Code(s): F17.200 - Nicotine dependence, unspecified, uncomplicated - Assessment and plan all Dx Assessment and Plan for all problems:: She is doing well this morning. We will start her omeprazole so she does not get heartburn. We will repeat her CBC in the morning. She always has slightly elevated white blood cell count and has been worked up for this and has had no findings as result of this.
--- NOTE | 2021-06-01 10:30 | PC.NURSE ---
Assisted pt up to the bathroom for the first time since removal of duarte catheter. Pt was dizzy initially upon standing up and attempting to ambulate. After a few seconds, pt ambulated to bathroom with assist x1 while holding on to IV pole. Urine measured in specimen collection hat. Pt voided 400mls bright yellow urine w/o difficulty. No vaginal bleeding noted. Pt assisted to sit in the rocking chair for a while.
--- NOTE | 2021-06-01 15:36 | PC.NURSE ---
No acute changes from previous assessment this morning. Pt is passing a very small amt of gas. +BS. Lungs clear. Continues bilat thigh high scuds. Tolerating regular diet. Has not required medication for nausea. IV fluids (LR) continues at 125ml/hr. IV site patent and infusing well. Pt does c/o heartburn. Will medicate with Omeprozole early. Has voided 500mls thus far since removal of f/c.
--- NOTE | 2021-06-01 21:37 | PC.NURSE ---
Dr. Agosto notified pt went to the bathroom and yelled out for help. Pt reports she had a small BM and was walking back to bed and noticed blood coming from her incision site. Upon entering room, pt's dressing was soaked with blood and blood was seeping out the bottom of the tegaderm. 4x4's and abd pads applied to site with tape. VSS
--- NOTE | 2021-06-01 22:15 | PC.NURSE ---
Pts pressure dressing remains C/D/I no bleeding noted, abdominal binder remains in place
--- NOTE | 2021-06-01 23:20 | PC.NURSE ---
pt denies any pain at this time. Abdominal binder in place, no active bleeding noted to pressure dressing
[2021-06-02 04:00] VITALS: BP 122/64; PULSE 80; RESP 17; TEMP 36.9; O2SAT 94
--- NOTE | 2021-06-02 04:25 | PC.NURSE ---
Pt has slept in intervals this shift. BLT lungs CTA, bowels sounds noted in all 4 quadrants. Pt is on RA and IV is patent and infusing well. thigh high scuds are in place. Pt abdomen is soft and tender. pressure dressing to pt's abdomen remains C/D/I. no drainage or bleeding noted. Pt has ambulated to the bathroom with stand-by assistance. Pt denies headache, N/V, or SOA. Pt has been medicated for pain, nausea, and heartburn per eMAR this shift. VSS
[2021-06-02 08:00] VITALS: BP 119/62; PULSE 71; RESP 18; TEMP 36.6; O2SAT 97
--- NOTE | 2021-06-02 08:17 | PC.NURSE ---
LAB AT BEDSIDE.
[2021-06-02 08:33] LABS: Basophils # 0.1 K/mm3 (0-0.2); Basophils % 0.6 % (0.1-2.0); Eosinophils # 0.2 K/mm3 (0.0-0.4); Eosinophils % 1.9 % (0.1-12.0); Hemoglobin 10.6 g/dL (12.2-16.2); Lymphocytes # 2.1 K/mm3 (0.7-4.5); Lymphocytes % 18.7 % (10-50); Mean Corpuscular HGB Conc 31.3 g/dL (31.8-35.4); Mean Corpuscular Hemoglobin 28.8 pg (27.0-31.2); Mean Corpuscular Volume 92.2 fl (81-99); Mean Platelet Volume 7.9 fl (7.4-10.4); Monocytes # 0.7 K/mm3 (0.1-1.0); Monocytes % 5.9 % (1.7-9.3); Neutrophils # 8.1 K/mm3 (1.8-7.8); Neutrophils % 72.9 % (37.0-80.0); Platelet Count 396 K/mm3 (142-424); Red Blood Count 3.68 M/mm3 (4.20-5.40); Red Cell Distribution Width 14.1 % (11.5-17.5); White Blood Count 11.1 K/mm3 (4.8-10.8)
[2021-06-02 08:44] LABS: Chloride 102 mmol/L (98-107); Potassium 3.3 mmoL/L (3.5-5.1); Sodium 136 mmol/L (136-145)
[2021-06-02 08:47] LABS: Anion Gap 8.3 mEq/L (5-15); Blood Urea Nitrogen 13 mg/dl (7-17); Carbon Dioxide 29 mmol/L (22.0-30.0); Creatinine Clearance Estimated 70 mL/min (50-200); Estimated Glomerular Filt Rate 67 ml/min (>60); GFR (African American) 82 ML/MIN (>60)
[2021-06-02 08:48] LABS: Calcium 8.2 mg/dl (8.4-10.2); Glucose 100 mg/dl (74-100)
--- NOTE | 2021-06-02 09:50 | PC.NURSE ---
DR. ALEMAN HERE FOR ROUNDING. REPORT GIVEN. MD REPORTS TO KEEP DRESSING AND BINDER ON UNTIL TOMORROW. R/V
--- NOTE | 2021-06-02 09:58 | HMH.ACPN2 ---
Internal Medicine - PN: Subj *Date: 06/02/21 *Time: 09:58 Interval history: She continues to do well. She is eating and drinking and ambulating. She is passing some gas. She denies any chest pain, shortness of breath or calf tenderness. She did have some bleeding from her incision last night but her hemoglobin has stabilized and her white count has come down. I have reassured her. I suspect she had a small subcutaneous hematoma that drained spontaneously. Exam Vital signs and Labs for Last 24 Hours: Temp Pulse Resp BP Pulse Ox 97.9 F 71 18 119/62 97 06/02/21 08:00 06/02/21 08:00 06/02/21 08:00 06/02/21 08:00 06/02/21 08:00 Laboratory Results - last 24 hr 06/02/21 08:21: Sodium 136, Potassium 3.3 L, Chloride 102, Carbon Dioxide 29, Anion Gap 8.3, BUN 13, Creatinine 0.90, Estimated Creat Clear 70, Estimated GFR 67, Est GFR ( Amer) 82, Glucose 100, Calcium 8.2 L 06/02/21 08:21: WBC 11.1 H D, RBC 3.68 L, Hgb 10.6 L, Hct 34.0 L, MCV 92.2, MCH 28.8, MCHC 31.3 L, RDW 14.1, Plt Count 396, MPV 7.9, Neut % (Auto) 72.9, Lymph % (Auto) 18.7, [place] % (Auto) 5.9, Eos % (Auto) 1.9, Baso % (Auto) 0.6, Neut # (Auto) 8.1 H, Lymph # (Auto) 2.1, [place] # (Auto) 0.7, Eos # (Auto) 0.2, Baso # (Auto) 0.1 I & O for Last 24 hours: Intake & Output 05/30/21 05/31/21 06/01/21 06/02/21 11:59 11:59 11:59 11:59 Intake Total 1000 / 1000 1000 / 1000 Output Total 50 / 50 1100 / 1100 1100 / 1100 Balance 950 / 950 -1100 / -1100 -100 / -100 Weight 265 lb - Constitutional no acute distress - *Routine HEENT Exam Head: Present: normocephalic Eye: Present: EOMI, PERRL ENT: Present: mucous membranes moist Assessment and Plan (1) Mass of uterine adnexa Status: Acute Category: Medical Code(s): N94.89 - Other specified conditions associated with female genital organs and menstrual cycle (2) Heavy menstrual bleeding Status: Acute Category: Medical Code(s): N92.0 - Excessive and frequent menstruation with regular cycle (3) Previous section Status: Acute Category: Surgical Code(s): Z98.891 - History of uterine scar from previous surgery (4) Morbid obesity with body mass index (BMI) of 45.0 to 49.9 in adult Status: Acute Category: Medical Code(s): E66.01 - Morbid (severe) obesity due to excess calories; Z68.42 - Body mass index [BMI] 45.0-49.9, adult (5) Tobacco dependence syndrome Status: Chronic Category: Medical Code(s): F17.200 - Nicotine dependence, unspecified, uncomplicated - Assessment and plan all Dx Assessment and Plan for all problems:: She continues to do well. We will plan to send her home tomorrow.
[2021-06-02 12:00] VITALS: BP 105/56; PULSE 71; RESP 20; TEMP 36.8; O2SAT 95
--- NOTE | 2021-06-02 12:56 | PC.NURSE ---
NO CHANGES ON MY SHIFT. REPORT GIVEN TO Henry KELLER RN. DRESSING ASSESSED AGAIN- NO CHANGE FROM PREVIOUS ASSESSMENT. OLD BLOOD NOTED TO DRESSING. NO NEEDS VOICED TO NURSE.
[2021-06-02 16:00] VITALS: BP 121/72; PULSE 74; RESP 18; TEMP 36.9; O2SAT 95
[2021-06-02 20:30] VITALS: BP 130/66; PULSE 85; RESP 18; TEMP 37.1; O2SAT 95
--- NOTE | 2021-06-02 22:32 | PC.NURSE ---
UPON ENTERING ROOM,PT ASKED IF THE HAET COULD BE TURNED DOWN,THIS WAS DONE AND FAN WAS OFFERED AND PT SAID THAT WOULD BE NICE,FAN PROVIDED,PT REPORTS PAIN IS TOLERABLE AND DENIES ANY NEED FOR PAIN MEDICINE ,WILL CONTINUE TO MONITOR
[2021-06-03 00:42] VITALS: BP 115/68; PULSE 85; RESP 16; TEMP 36.9; O2SAT 92
--- NOTE | 2021-06-03 00:43 | PC.NURSE ---
UPON ENTERING ROOM,PT WAS SLEEPING,RESP.EVEN AND UNLABORED.V/S OBTAINED 115/68,P-85,R-16,T-98.5,SAT LEVEL 92% ON RA.ASKED PT IF SHE WAS SOA AND SHE SAID NO,PT REPORTS SHE WEARS A CPAP AT HOME.PT REPORTS SHE DOES NOT WANT TO PUT ANY OXYGEN ON ,PT DENIES ANY NEED FOR PAIN MEDICINE AT THIS TIME,WILL CONTINUE TO MONITOR,PT REPORTS THE FAN HAS HELPED ALOT
[2021-06-03 04:00] VITALS: BP 129/71; PULSE 76; RESP 18; TEMP 37; O2SAT 94
--- NOTE | 2021-06-03 04:17 | PC.NURSE ---
NO ACUTE CHANGES FROM PREVIOUS ASSESSMENT,LUNGS CLEAR ALL FRONT THIS MORNING,RESP.EVEN AND UNLABORED SAT LEVEL ON RA 94%,PT AFEBRILE,POSITIVE BOWEL SOUNDS X4 QUADS,NO NEW DRAINAGE TO DRESSING ,SEROUS,PT STILL HAS ABD BINDER ON.PT MEDICATE WITH OXYCODONE 5MG AND MOTRIN 800MG PO THIS MORNING FOR A PAIN OF 6 ON SCALE OF 0-10,PT VOIDING WITHOUT DIFF.PT REPORTS PASSING FLATUS AND SHE HAD REPORTED SHE HAD A BOWEL MOVEMENT YESTERDAY BEFORE SHIFT CHANGE.
[2021-06-03 07:34] LABS: MANUAL DIFFERENTIAL MANUAL DIFFERENTIAL (MANUAL DIFF)
[2021-06-03 07:47] LABS: Basophils # 0.1 K/mm3 (0-0.2); Basophils % 0.8 % (0.1-2.0); Eosinophils # 0.3 K/mm3 (0.0-0.4); Hematocrit 31.7 % (37.0-47.0); Hemoglobin 10.2 g/dL (12.2-16.2); Lymphocytes # 1.8 K/mm3 (0.7-4.5); Lymphocytes % 18.2 % (10-50); Mean Corpuscular HGB Conc 32.1 g/dL (31.8-35.4); Mean Corpuscular Hemoglobin 29.1 pg (27.0-31.2); Mean Corpuscular Volume 90.8 fl (81-99); Mean Platelet Volume 7.6 fl (7.4-10.4); Monocytes # 0.5 K/mm3 (0.1-1.0); Monocytes % 5.7 % (1.7-9.3); Neutrophils # 6.9 K/mm3 (1.8-7.8); Neutrophils % 72.3 % (37.0-80.0); Platelet Count 447 K/mm3 (142-424); Red Blood Count 3.49 M/mm3 (4.20-5.40); White Blood Count 9.6 K/mm3 (4.8-10.8)
[2021-06-03 07:52] LABS: Chloride 104 mmol/L (98-107); Potassium 3.5 mmoL/L (3.5-5.1); Sodium 139 mmol/L (136-145)
[2021-06-03 07:55] LABS: Blood Urea Nitrogen 9 mg/dl (7-17); Creatinine Clearance Estimated 90 mL/min (50-200); Estimated Glomerular Filt Rate 90 ml/min (>60); GFR (African American) 109 ML/MIN (>60)
[2021-06-03 07:56] LABS: Anion Gap 6.5 mEq/L (5-15); Calcium 8.2 mg/dl (8.4-10.2); Carbon Dioxide 32 mmol/L (22.0-30.0); Glucose 97 mg/dl (74-100)
[2021-06-03 08:15] VITALS: BP 133/78; PULSE 82; RESP 20; TEMP 36.7; O2SAT 95
--- NOTE | 2021-06-03 08:30 | PC.NURSE ---
Pressure dressing removed at this time- soaked abd pad and 4x4 and telfa. cleansed skin well with 1/2 peroxide and 1/2 ns. no active bleeding noted. bruising noted. reapplied sterile telfa and tegaderm to midline incision. pt tolerated well. education provided. will closely monitor drainage from this.
[2021-06-03 08:56] LABS: Eosinophils % 1 % (0-3); Lymphocytes % 18 % (10-50); Monocytes % 1 % (2-9); Neutrophils % 80 % (42-76); Platelet Estimate Slight Increase; RBC Morphology Normal; Total Cells Counted 100
--- NOTE | 2021-06-03 10:20 | PC.NURSE ---
DR. PERALES AT BEDSIDE
--- NOTE | 2021-06-03 10:26 | HMH.DCSUM ---
General - General Admission date:: 05/31/21 Discharge date: 06/03/21 HPI HPI: 46 yo Pelvic mass on ultrasound 03/16/21: 9x6cm, complex Mass appearance consistent with dermoid Follow up CT 03/28 showed mixed fatty softy tissue and calcium containing mass in right adnexa measuring 7.5x7.2x6.3cm mass c/w mature cystic teratoma Patient reports that she has known about this suspected dermoid tumor for several years, after evaluation at [facility] in [facility] She is having pelvic pain and is ready to have mass removed; she declines to preserve normal left ovary She is also heavy bleeding and would like uterus removed at same time She was counseled extensively about the differences between a laparotomy with oophorectomy and a REYNOLD/BSO, along with the increased surgical risks posed by her obesity, previous 3 c sections and chronic tobacco abuse She was counseled regarding surgical menopause and the option of starting estrogen postoperatively; she declines to begin hormone therapy at this time and will reassess at office postop visit This surgery was originally scheduled for April 2021, but was cancelled because of positive covid test with preop labs She was asymptomatic at the time, but WBC was 20.1 on 05/06/21 She was sent to PCP for evaluation and preop clearance CXR was negative and WBC has trended downward since that time: 16.6 on 05/09 and 14.4 Hospital Course Hospital Course: On May 31, 2021 she underwent a total abdominal hysterectomy and bilateral salpingo-oophorectomy through a midline incision. She had a large dermoid cyst on her ovary. She has done well postoperatively and has remained afebrile throughout her hospitalization. Her hemoglobin is stable at 10.2. Her white count has come down from 26-9. She denies any shortness of breath, calf tenderness or chest pain. Her incision is clean and dry. There is a small amount of bloody ooze and she will continue to keep it clean at home. We have given her a bottle of Hibiclens to take home to keep the area clean. She has pascual and will continue with these for the next couple of weeks. She was given the usual instructions with respect to limiting her activity, driving and sexual activity. She was given instructions with respect to wound care. She will continue with her home medications. She was given a prescription for Percocet 5/325 number 30 tablets. Her condition on discharge is stable and improved. Objective Vital signs: Temp Pulse Resp BP Pulse Ox 98.1 F 82 20 133/78 95 06/03/21 08:15 06/03/21 08:15 06/03/21 08:15 06/03/21 08:15 06/03/21 08:15 no acute distress - *Routine HEENT Exam Head: Present: normocephalic Eye: Present: EOMI, PERRL ENT: Present: mucous membranes moist - *Routine Neck Exam Present: supple - *Routine Abdominal Exam Present: soft, normoactive bowel sounds. Absent: tenderness Results Labs on day of discharge: Labs from last 24 hours 06/03/21 06/03/21 07:21 07:21 WBC 9.6 RBC 3.49 L Hgb 10.2 L Hct 31.7 L MCV 90.8 MCH 29.1 MCHC 32.1 RDW 14.0 Plt Count 447 H MPV 7.6 Neut % (Auto) 72.3 Lymph % (Auto) 18.2 [place] % (Auto) 5.7 Eos % (Auto) 3.0 Baso % (Auto) 0.8 Neut # (Auto) 6.9 Lymph # (Auto) 1.8 [place] # (Auto) 0.5 Eos # (Auto) 0.3 Baso # (Auto) 0.1 Total Counted 100 Neutrophils % (Manual) 80 H Lymphocytes % (Manual) 18 Monocytes % (Manual) 1 L Eosinophils % (Manual) 1 Platelet Estimate Slight increase RBC Morphology Normal Sodium 139 Potassium 3.5 Chloride 104 Carbon Dioxide 32 H Anion Gap 6.5 BUN 9 D Creatinine 0.70 D Estimated Creat Clear 90 Estimated GFR 90 Est GFR ( Amer) 109 D Glucose 97 Calcium 8.2 L DS: Diagnosis - Discharge Diagnosis (1) Mass of uterine adnexa Status: Acute (2) Heavy menstrual bleeding Status: Acute (3) Previous section Status: Acute
--- NOTE | 2021-06-03 10:45 | PC.NURSE ---
dressing changed again. no active bleeding. top of dressing saturated with serosang drainage. education provided.
--- NOTE | 2021-06-03 10:50 | PC.NURSE ---
discharge education provided at this time. educated thoroughly on wound care and monitoring for bleeding. also educated on pain control and restrictions. she v/u
--- NOTE | 2021-06-05 10:07 | P.PN_ITS ---
[facility] Anesthesia Record Part II Discharge Time: 11:29 Destination: Obstetric PACU nurse assessment reviewed?: Yes Patient Condition:: Good Anesthesia Complications:: None Swallowing reflex intact?: Yes Cyanosis?: No Blood Pressure: 125/66 Pulse Rate: 86 Temperature: 97 F Mental Status: Alert & Oriented Pain level:: 0 Nausea and/or vomitting:: None Intake, IV Amount: 0
[2021-06-05 10:08] VITALS: BP 125/66; PULSE 86; TEMP 36.1
== END 2021-06-03 10:58 | disposition home or self-care (01) | DRG 742 ==
LOC: OB 06:20
PROVIDERS: Nurse Practitioner Obstetrics & Gynecology; Admitting Provider Obstetrics & Gynecology; PCP Nurse Practitioner Family; Visit Provider Obstetrics & Gynecology
PROC: 0UT90ZZ Resection of Uterus, Open Approach (ICD-10-PCS; CPT 58150; principal; 2021-05-31 07:30)
DX: D27.0 Benign neoplasm of right ovary (principal); Z68.41 Body mass index [BMI] 40.0-44.9, adult; N94.89 Other specified conditions associated with female genital organs and menstrual cycle; N92.0 Excessive and frequent menstruation with regular cycle; F17.210 Nicotine dependence, cigarettes, uncomplicated; J44.9 Chronic obstructive pulmonary disease, unspecified; I25.10 Atherosclerotic heart disease of native coronary artery without angina pectoris; I10 Essential (primary) hypertension; E66.01 Morbid (severe) obesity due to excess calories
CPT/HCPCS: 58180; 36415; 80048; 81001; 85007; 85014; 85018; 85025; 85048; 85049; 96374; C9290; C9803; J2405; U0003; U0005

== ENCOUNTER 2021-06-11 09:21 | Observation (INO) | payer OTHER, SELFPAY ==
[2021-06-11 09:44] VITALS: BP 114/54; PULSE 76; RESP 20; TEMP 36.9; O2SAT 97; BMI 44.1
--- NOTE | 2021-06-11 09:48 | CT_ITS ---
FINAL REPORT TECHNIQUE: Pre-and postcontrast axial images were obtained.This study was performed with techniques to keep radiation doses as low as reasonably achievable (ALARA). Individualized dose reduction techniques using automated exposure control or adjustment of mA and/or kV according to the patient's size were employed. CLINICAL HISTORY: r/o abcess following hystrectomy she has drainage and pain and fever FINDINGS: FINDINGS: Precontrast images demonstrate a small nonobstructing stone in the left renal collecting system measuring 3 mm. Postcontrast images demonstrate the lung bases are clear. The liver parenchyma is homogeneous. The gallbladder is present. The spleen, pancreas, and adrenal glands are unremarkable. There are no renal masses. There is fluid and inflammation in the subcutaneous soft tissues of the midline anterior pelvic wall. There is a small amount of free fluid in the pelvis. There is no definite abscess or hematoma seen. The appendix is normal. IMPRESSION: 1. Nonobstructing stone in the left kidney. 2. Stranding and fluid in the anterior pelvic wall. 3. Small amount of fluid in the pelvis which is nonspecific, favor postoperative Reviewed, Interpreted and Dictated by Young Gtz MD Transcribed by Belle Cisneros Authenticated by Young Gtz MD on 06/11/2021 02:19:56 PM [facility]
--- NOTE | 2021-06-11 10:52 | PC.NURSE ---
Pt leaving department with radiology personnel
[2021-06-11 10:53] LABS: Influenza A, PCR Not Detected (NotDetected); Influenza B, PCR Not Detected (NotDetected)
[2021-06-11 11:20] LABS: Alanine Aminotransferase 30 U/L (12-78); Albumin Level 3.9 g/dl (3.5-5.0); Albumin/Globulin Ratio 1.1 (1.1-1.8); Alkaline Phosphatase 88 U/L (38-126); Anion Gap 10.6 mEq/L (5-15); Aspartate Amino Transferase 41 U/L (14-36); Bilirubin,Total 0.3 mg/dl (0.2-1.3); Blood Urea Nitrogen 8 mg/dl (7-17); Calcium 9.2 mg/dl (8.4-10.2); Carbon Dioxide 29 mmol/L (22.0-30.0); Chloride 99 mmol/L (98-107); Creatinine Clearance Estimated 90 mL/min (50-200); Estimated Glomerular Filt Rate 90 ml/min (>60); GFR (African American) 109 ML/MIN (>60); Globulin 3.4 g/dL (1.3-3.2); Glucose 103 mg/dl (74-100); Potassium 3.6 mmoL/L (3.5-5.1); Sodium 135 mmol/L (136-145); Total Protein,Serum 7.3 g/dl (6.3-8.2)
[2021-06-11 11:29] LABS: Coronavirus 19, PCR Detected (NotDetected)
[2021-06-11 11:48] LABS: Basophils # 0.2 K/mm3 (0-0.2); Basophils % 1.3 % (0.1-2.0); Eosinophils # 0.4 K/mm3 (0.0-0.4); Eosinophils % 3.6 % (0.1-12.0); Hematocrit 38.1 % (37.0-47.0); Hemoglobin 12.1 g/dL (12.2-16.2); Lymphocytes # 1.8 K/mm3 (0.7-4.5); Lymphocytes % 15.9 % (10-50); Mean Corpuscular HGB Conc 31.8 g/dL (31.8-35.4); Mean Corpuscular Hemoglobin 28.5 pg (27.0-31.2); Mean Corpuscular Volume 89.6 fl (81-99); Mean Platelet Volume 7.7 fl (7.4-10.4); Monocytes # 0.6 K/mm3 (0.1-1.0); Monocytes % 5.7 % (1.7-9.3); Neutrophils # 8.2 K/mm3 (1.8-7.8); Neutrophils % 73.6 % (37.0-80.0); Platelet Count 585 K/mm3 (142-424); Red Blood Count 4.25 M/mm3 (4.20-5.40); Red Cell Distribution Width 14.1 % (11.5-17.5); White Blood Count 11.1 K/mm3 (4.8-10.8)
--- NOTE | 2021-06-11 12:27 | HMH.PHAVTE ---
[facility] Pharmacy VTE Monitoring - Patient Demographics Admission date: 06/11/21 Report Date: 06/11/21 Time: 12:27 Allergies/Adverse Reactions: Patient Allergies No Known Allergies Allergy (Verified 06/11/21 09:01) Height: 1.65 m Weight: 120.202 kg - VTE Risk Labs: VTE Related Lab Results Hgb 12.1 g/dL (12.2-16.2) L 06/11/21 10:34 Hct 38.1 % (37.0-47.0) 06/11/21 10:34 Plt Count 585 K/mm3 (142-424) H 06/11/21 10:34 BUN 8 mg/dl (7-17) 06/11/21 10:34 Creatinine 0.70 mg/dl (0.52-1.04) 06/11/21 10:34 Estimated Creat Clear 90 mL/min (50-200) 06/11/21 10:34 - Prophylaxis VTE Prophylaxis Ordered?: Yes Types of VTE Prophylaxis: TEDS Knee High Location of Applied Device: Bilateral Lower Extremeties
--- NOTE | 2021-06-11 13:21 | HMH.HP ---
*Admission Date: 06/11/21 *Chief complaint: postop infection *History of present illness: 46 yo female s/p abdominal supracervical hysterectomy and BSO on 05/31/21 for HMB and Dermoid tumor. She was discharged home on POD #3 and reports that she was having serosanguinous drainage from incision at the time of discharge She was seen in office for postop incision check on 06/08/21 and was started on po antibiotics with concern about continued serosangunious drainage. She denied fever/chills or purulent discharge at the time, and postop abd pain was mild She noted discharge appeared purulent as well as temperature 102.0 on 06/10/21 She was seen in office 06/11/20 and noted to have purulent drainage from intact incision Temperature in office was normal but she had moderate abd pain on exam She is direct admitted for postop wound infection with possible abd/pelvic abscess She will be started on IV antibiotics and evaluated with CT abd/pelvis [facility] History I have reviewed the patient's past medical history: Yes Medical History: Reports:: Anxiety, Asthma, Chronic Obstructive Pulmonary Disease (COPD), Coronary Artery Disease, Depression, Hyperlipidemia, Hypertension, Kidney Stones, Migraine, Palpitations, Urinary Tract Infection Denies:: Cancer, Diabetes Mellitus Type 1, Diabetes Mellitus Type 2, Internal Pacemaker, MRSA, Seizures *Have you ever received a pneumonia vaccine?: No *Have you received a flu vaccine this season?: No Other Medical History: Reports: Arthritis, Other. Denies: Blood Transfusion Reaction Laterality Cases: Left: Arthroscopy Knee, Bilateral: Tonsillectomy Other Surgeries: Yes: Cardiac Catheterization, , Hernia Repair, Hysterectomy-Partial, Other. No: Pacemaker Amputation: No Fractures: No - *Social History Smoking Status: Current every day smoker Tobacco Type: cigarettes # Packs/Day (cigarettes): 1 Alcohol Intake: never Alcohol Intake Frequency:: holidays/special occasions only Substance Use Type: denies use *Occupational Status:: employed Housing: house Household Members: spouse *Travel in the last 8 weeks: None - Psychiatric History Pschychiatric History:: Reports:: Anxiety, Depression Family Hx:: No significant family history Review of Systems - Review of Systems Review of systems:: pertinent systems reviewed and negative unless documented below - Constitutional Reports fever(s) - *Respiratory Denies cough, Denies shortness of breath - *Gastrointestinal Reports abdominal pain, Denies bloating, Denies loose stools, Denies vomiting - *Genitourinary Denies abnormal vaginal bleeding - *Musculoskeletal Reports back pain - Integumentary/Breasts Reports other (purulent drainage from abdominal incision) - *Neurologic Denies confusion, Denies dizziness - Hematologic/Lymphatic Denies easy bruising, Denies enlarged lymph nodes Meds Home Medications Medication Instructions Recorded Confirmed Type modafinil 100 mg tablet 100 mg PO AM 11/07/20 06/11/21 History omeprazole 40 mg capsule,delayed 40 mg PO AM 11/07/20 06/11/21 History release paroxetine HCl 10 mg tablet 10 mg PO DAILY tab 11/20/20 06/11/21 History Spironolactone [Aldactone 100mg 100 mg PO DAILY 11/29/20 06/11/21 History Tab] desvenlafaxine succinate 50 mg 50 mg PO AM 03/28/21 06/11/21 History tablet,extended release 24 hr Umeclidinium Brm/Vilanterol Tr 1 inh INHALATION DAILY 05/02/21 06/11/21 History [Anoro Ellipta 62.5-25 Mcg INH] bisoproloL fumarate [Bisoprolol 5 mg PO DAILY 05/02/21 06/11/21 History Fumarate] albuterol sulfate 90 mcg/actuation 1 inh INHALATION Q6H PRN #8.5 g 05/25/21 06/11/21 Rx aerosol inhaler Furosemide [Lasix 40mg tablet] 40 mg PO DAILY 05/31/21 06/11/21 History Losartan Potassium [Cozaar 50mg 50 mg PO DAILY 05/31/21 06/11/21 History Tablets] Oxycodone HCl/Acetaminophen 1 tab PO Q4-6H PRN #30 tab 06/03/21 06/11/21 Rx [Percocet 5/325mg tablet] Cyclobenzaprine HCl 5 mg PO TID P
[2021-06-11 16:00] VITALS: BP 118/62; PULSE 73; RESP 18; TEMP 37; O2SAT 94
--- NOTE | 2021-06-11 18:54 | PC.NURSE ---
A&OX4. TOLERATING RA WELL. C/O ABD PAIN X1 THUS FAR, TX PER MAR. RESTING WITH EYES CLOSED ON REASSESSMENT. DID COLLECT MIDLINE SPECIMEN AND APPLY NEW DRESSING THIS SHIFT. PT UP INDEPENDENTLY IN ROOM. COVID PRECAUTIONS IN PLACE. VSS WILL CONTINUE TO MONITOR.
--- NOTE | 2021-06-11 19:25 | PC.NURSE ---
REPORT RECIEVED FROM DAQUANRN
[2021-06-11 19:40] VITALS: BP 113/72; PULSE 83; RESP 18; TEMP 37; O2SAT 96
--- NOTE | 2021-06-11 19:40 | PC.NURSE ---
FULL PPE WORN IN ROOM INCULDING EYE GOGGLES TO DO ASSESSMENT.MEDICATED PT WITH PERCOCET 5/325MG PO FOR PAIN OF 7 ON SCALE OF 0-10.V/S STABLE,WILL CONTINUE TO MONITOR
--- NOTE | 2021-06-11 22:45 | PC.NURSE ---
WITH CHECKING ON PT SHE WAS ON PHONE,SHE ASKED ABOUT MAYBE CHECKING HER DRESSING,BECAUSE IT HAD SOME YELLOW DRAINAGE ON IT,APPLIED FULL PPE ON AND CHECKED THE DRESSING,MODERATE PURULENT DRAINAGE NOTED.CHANGED DRESSING,CLEANSED INCISION WITH HALF NS AND PEROXIDE AND THEN COVERED WITH TLFA AND TEGADERM,PT REPORTS PAIN IS OK,SHE KNOWS SHE IS GOING TO HAVE PAIN WITH GETTING UP AND DOWN,FAN PROVIDED REQ.
[2021-06-12 02:25] VITALS: BP 110/65; PULSE 75; RESP 17; TEMP 36.4; O2SAT 95
--- NOTE | 2021-06-12 02:30 | PC.NURSE ---
PT WAS SLEEPING,EASILY AROUSED AT THIS TIME TO HANG PIPERACILLIN,V/S OBTAINED AND AFEBRILE.PT DENIES NEEDING ANYTHING FOR PAIN.INCISION WITH SMALL SPOT OF PURPULENT DRAINGE NOTED
[2021-06-12 06:00] VITALS: BP 112/67; PULSE 69; RESP 18; TEMP 36.6; O2SAT 95
--- NOTE | 2021-06-12 06:00 | PC.NURSE ---
PT HAS SLEPT WELL TONIGHT,MEDICATED AT BEGINNING OF SHIFT,V/S STABLE PT AFEBRILE,CHANGED DRESSING ONCE TONIGHT FOR PURULENT DRAINAGE,THIS AM A SMALL SIZE PURULENT DRAINAGE ON THIS DRESSING SIZE OF A QUARTER.
[2021-06-12 07:58] LABS: Basophils # 0.1 K/mm3 (0-0.2); Basophils % 0.7 % (0.1-2.0); Eosinophils # 0.8 K/mm3 (0.0-0.4); Eosinophils % 7.2 % (0.1-12.0); Hematocrit 35.6 % (37.0-47.0); Hemoglobin 11.2 g/dL (12.2-16.2); Lymphocytes # 1.9 K/mm3 (0.7-4.5); Lymphocytes % 17.2 % (10-50); Mean Corpuscular HGB Conc 31.5 g/dL (31.8-35.4); Mean Corpuscular Hemoglobin 28.2 pg (27.0-31.2); Mean Corpuscular Volume 89.6 fl (81-99); Mean Platelet Volume 7.5 fl (7.4-10.4); Monocytes # 0.6 K/mm3 (0.1-1.0); Monocytes % 5.8 % (1.7-9.3); Neutrophils # 7.4 K/mm3 (1.8-7.8); Neutrophils % 69.1 % (37.0-80.0); Platelet Count 515 K/mm3 (142-424); Red Blood Count 3.97 M/mm3 (4.20-5.40); White Blood Count 10.7 K/mm3 (4.8-10.8)
[2021-06-12 08:00] VITALS: O2SAT 93
[2021-06-12 09:15] VITALS: BP 120/72; PULSE 80; RESP 18; TEMP 36.6; O2SAT 93
--- NOTE | 2021-06-12 12:00 | PC.NURSE ---
Late entry 12:00 - Spoke with Dr. Rausch over telephone, Order received to consult General surgery for a second opinion on incision site. Order read back and verified 12:05 Nurse called surgery department. Dr. Cosby still in PRE-OP. Staff notified of need for consult with Dr. Cosby.
--- NOTE | 2021-06-12 12:52 | HMH.GSCON ---
*Admission Date: 06/11/21 *Reason for consult:: Postoperative wound *History of present illness: This is a 46-year-old female status post supracervical hysterectomy/BSO on May 31. She was placed on antibiotics on June 08 at the time of office visit secondary to concerns for possible early wound infection. On June 10 she developed fever and purulent drainage. She has been admitted for IV antibiotics, wound care, and radiographic evaluation. Currently, she is afebrile and her white blood cell count is normal. Review of Systems - Constitutional Denies chills - Eyes Denies change in vision - *Cardiovascular Denies chest pain - *Respiratory Denies cough - *Neurologic Denies confusion, Denies dizziness [facility] History Medical History: Reports:: Anxiety, Asthma, Chronic Obstructive Pulmonary Disease (COPD), Coronary Artery Disease, Depression, Hyperlipidemia, Hypertension, Kidney Stones, Migraine, Palpitations, Urinary Tract Infection Denies:: Cancer, Diabetes Mellitus Type 1, Diabetes Mellitus Type 2, Internal Pacemaker, MRSA, Seizures *Have you ever received a pneumonia vaccine?: No *Have you received a flu vaccine this season?: No Other Medical History: Reports: Arthritis, Other. Denies: Blood Transfusion Reaction Laterality Cases: Left: Arthroscopy Knee, Bilateral: Tonsillectomy Other Surgeries: Yes: Cardiac Catheterization, , Hernia Repair, Hysterectomy-Partial, Other. No: Pacemaker Amputation: No Fractures: No - *Social History Smoking Status: Current every day smoker Tobacco Type: cigarettes # Packs/Day (cigarettes): 1 Alcohol Intake: never Alcohol Intake Frequency:: holidays/special occasions only Substance Use Type: denies use *Occupational Status:: employed Housing: house Household Members: spouse *Travel in the last 8 weeks: None - Psychiatric History Pschychiatric History:: Reports:: Anxiety, Depression Family Hx:: No significant family history Meds Home Medications Medication Instructions Recorded Confirmed Type modafinil 100 mg tablet 100 mg PO AM 11/07/20 06/11/21 History omeprazole 40 mg capsule,delayed 40 mg PO AM 11/07/20 06/11/21 History release paroxetine HCl 10 mg tablet 10 mg PO DAILY tab 11/20/20 06/11/21 History Spironolactone [Aldactone 100mg 100 mg PO DAILY 11/29/20 06/11/21 History Tab] desvenlafaxine succinate 50 mg 50 mg PO AM 03/28/21 06/11/21 History tablet,extended release 24 hr Umeclidinium Brm/Vilanterol Tr 1 inh INHALATION DAILY 05/02/21 06/11/21 History [Anoro Ellipta 62.5-25 Mcg INH] bisoproloL fumarate [Bisoprolol 5 mg PO DAILY 05/02/21 06/11/21 History Fumarate] albuterol sulfate 90 mcg/actuation 1 inh INHALATION Q6H PRN #8.5 g 05/25/21 06/11/21 Rx aerosol inhaler Furosemide [Lasix 40mg tablet] 40 mg PO DAILY 05/31/21 06/11/21 History Losartan Potassium [Cozaar 50mg 50 mg PO DAILY 05/31/21 06/11/21 History Tablets] Oxycodone HCl/Acetaminophen 1 tab PO Q4-6H PRN #30 tab 06/03/21 06/11/21 Rx [Percocet 5/325mg tablet] Cyclobenzaprine HCl 5 mg PO TIDP PRN 06/11/21 06/11/21 History [Cyclobenzaprine 5mg Tab*] cephALEXin [cephALEXin 500mg 500 mg PO TID 06/11/21 06/11/21 History capsule*] Allergies Allergy/AdvReac Type Severity Reaction Status Date / Time No Known Allergies Allergy Verified 06/11/21 09:01 Exam Vital signs and Labs for Last 24 Hours: Temp Pulse Resp BP Pulse Ox 97.8 F 69 18 112/67 93 L 06/12/21 06:00 06/12/21 06:00 06/12/21 06:00 06/12/21 06:00 06/12/21 08:00 Laboratory Results - last 24 hr 06/12/21 07:20: WBC 10.7, RBC 3.97 L, Hgb 11.2 L, Hct 35.6 L, MCV 89.6, MCH 28.2, MCHC 31.5 L, RDW 14.0, Plt Count 515 H, MPV 7.5, Neut % (Auto) 69.1, Lymph % (Auto) 17.2, [place] % (Auto) 5.8, Eos % (Auto) 7.2, Baso % (Auto) 0.7, Neut # (Auto) 7.4, Lymph # (Auto) 1.9, [place] # (Auto) 0.6, Eos # (Auto) 0.8 H, Baso # (Auto) 0.1 I & O for Last 24 hours: Intake & Output 06/10/21
--- NOTE | 2021-06-12 13:44 | HMH.ACPN2 ---
Internal Medicine - PN: Subj *Date: 06/12/21 *Time: 13:44 Interval history: HD #2 Readmission for postoperative wound seroma with concern for early infection No new complaints Tolerating regular diet, voiding without difficulty Afebrile since admission, WBC 10.7 Abdominal pain unchanged from yesterday Dressing saturated over 18 hour time frame ABD CT showed fluid and inflammation in subcutaneous tissue but no pelvic/abd abscess Exam Vital signs and Labs for Last 24 Hours: Temp Pulse Resp BP Pulse Ox 97.8 F 69 18 112/67 93 L 06/12/21 06:00 06/12/21 06:00 06/12/21 06:00 06/12/21 06:00 06/12/21 08:00 Laboratory Results - last 24 hr 06/12/21 07:20: WBC 10.7, RBC 3.97 L, Hgb 11.2 L, Hct 35.6 L, MCV 89.6, MCH 28.2, MCHC 31.5 L, RDW 14.0, Plt Count 515 H, MPV 7.5, Neut % (Auto) 69.1, Lymph % (Auto) 17.2, [place] % (Auto) 5.8, Eos % (Auto) 7.2, Baso % (Auto) 0.7, Neut # (Auto) 7.4, Lymph # (Auto) 1.9, Rank[place] # (Auto) 0.6, Eos # (Auto) 0.8 H, Baso # (Auto) 0.1 I & O for Last 24 hours: Intake & Output 06/10/21 06/11/21 06/12/21 06/13/21 11:59 11:59 11:59 11:59 Weight 265 lb Microbiology Reports for the Last 24 Hours: Microbiology 06/11/21 11:20 Incision - Abdominal Gram Stain - Final 06/11/21 11:20 Incision - Abdominal Wound Culture - Preliminary NO GROWTH AFTER 24 HOURS - Constitutional no acute distress - *Routine Respiratory Exam Absent: respiratory distress - *Routine Abdominal Exam Present: soft, tenderness. Absent: distended, guarding - *Routine Skin Exam Comments: Lower midline incision without spreading cellulitis. Small superficial opening along superior third of incision with some drainage. Lower portion incision shows superficial marginal necrosis and maceration. Very small amount of drainage at this site also noted. - *Routine Neurological Exam Present: alert, oriented X3 - Routine Psychiatric Exam Present: normal affect Assessment and Plan (1) Postoperative infection Status: Acute Category: Medical Code(s): T81.40XA - Infection following a procedure, unspecified, initial encounter (2) Seroma infection, postoperative Status: Acute Category: Medical (3) History of hysterectomy, supracervical abdominal (subtotal) Status: Acute Category: Surgical Code(s): Z90.711 - Acquired absence of uterus with remaining cervical stump (4) Morbid obesity with body mass index (BMI) of 45.0 to 49.9 in adult Status: Acute Category: Medical Code(s): E66.01 - Morbid (severe) obesity due to excess calories; Z68.42 - Body mass index [BMI] 45.0-49.9, adult (5) Tobacco dependence syndrome Status: Chronic Category: Medical Code(s): F17.200 - Nicotine dependence, unspecified, uncomplicated (6) COVID-19 Status: Acute Category: Medical Code(s): U07.1 - COVID-19 - Assessment and plan all Dx Assessment and Plan for all problems:: Continue zosyn Vancomycin added to current antibiotic regimen General surgery consult obtained and plan of care discussed with Dr. Cosby Discussed option of opening wound vs trial of wound vac with closed wound Wound care consulted for evaluation
--- NOTE | 2021-06-12 13:48 | PC.NURSE ---
Addendum entered by Kamila Salguero RN 06/12/21 18:38: MD order for bisoprolol is to give only if BP is >150/90. Original Note: 10:15 - Late Entry : Spoke with Dr. Rausch over telephone. Update given. Orders received to restart home meds, attempt to get wound culture when wound is draining purulently. Orders read back and verified.
--- NOTE | 2021-06-12 13:54 | PC.NURSE ---
12:[address] Cosby in room at this time. Dressing removed by Dr. Cosby. Dressing noted to have moderate amount of yellowish brown drainage on it. Wound culture obtained at this time. wishes to have dry gauze with tape, in place until wound vac is placed. Dry Gauze and tape placed over incision. Pt. tolerated well.
--- NOTE | 2021-06-12 14:02 | HMH.PHACONS ---
- Pharmacy Consult Date: 06/12/21 Time: 14:02 Referring provider: DR. FARNSWORTH Reason for Consult:: VANCOMYCIN DOSING Allergies and ADEs:: Allergies Allergy/AdvReac Type Severity Reaction Status Date / Time No Known Allergies Allergy Verified 06/11/21 09:01 Home Medications:: Home Medications Medication Instructions Recorded Confirmed Type modafinil 100 mg tablet 100 mg PO AM 11/07/20 06/11/21 History omeprazole 40 mg capsule,delayed 40 mg PO AM 11/07/20 06/11/21 History release paroxetine HCl 10 mg tablet 10 mg PO DAILY tab 11/20/20 06/11/21 History Spironolactone [Aldactone 100mg 100 mg PO DAILY 11/29/20 06/11/21 History Tab] desvenlafaxine succinate 50 mg 50 mg PO AM 03/28/21 06/11/21 History tablet,extended release 24 hr Umeclidinium Brm/Vilanterol Tr 1 inh INHALATION DAILY 05/02/21 06/11/21 History [Anoro Ellipta 62.5-25 Mcg INH] bisoproloL fumarate [Bisoprolol 5 mg PO DAILY 05/02/21 06/11/21 History Fumarate] albuterol sulfate 90 mcg/actuation 1 inh INHALATION Q6H PRN #8.5 g 05/25/21 06/11/21 Rx aerosol inhaler Furosemide [Lasix 40mg tablet] 40 mg PO DAILY 05/31/21 06/11/21 History Losartan Potassium [Cozaar 50mg 50 mg PO DAILY 05/31/21 06/11/21 History Tablets] Oxycodone HCl/Acetaminophen 1 tab PO Q4-6H PRN #30 tab 06/03/21 06/11/21 Rx [Percocet 5/325mg tablet] Cyclobenzaprine HCl 5 mg PO TIDP PRN 06/11/21 06/11/21 History [Cyclobenzaprine 5mg Tab*] cephALEXin [cephALEXin 500mg 500 mg PO TID 06/11/21 06/11/21 History capsule*] Height: 1.65 m Weight: 120.202 kg Laboratory Results:: Laboratory Results - last 24 hr 06/12/21 07:20: WBC 10.7, RBC 3.97 L, Hgb 11.2 L, Hct 35.6 L, MCV 89.6, MCH 28.2, MCHC 31.5 L, RDW 14.0, Plt Count 515 H, MPV 7.5, Neut % (Auto) 69.1, Lymph % (Auto) 17.2, [place] % (Auto) 5.8, Eos % (Auto) 7.2, Baso % (Auto) 0.7, Neut # (Auto) 7.4, Lymph # (Auto) 1.9, [place] # (Auto) 0.6, Eos # (Auto) 0.8 H, Baso # (Auto) 0.1 Medical History: Reports:: Anxiety, Asthma, Chronic Obstructive Pulmonary Disease (COPD), Coronary Artery Disease, Depression, Hyperlipidemia, Hypertension, Kidney Stones, Migraine, Palpitations, Urinary Tract Infection Denies:: Cancer, Diabetes Mellitus Type 1, Diabetes Mellitus Type 2, Internal Pacemaker, MRSA, Seizures Assessment and Plan (1) Postoperative infection Status: Acute Category: Medical Code(s): T81.40XA - Infection following a procedure, unspecified, initial encounter (2) Seroma infection, postoperative Status: Acute Category: Medical (3) History of hysterectomy, supracervical abdominal (subtotal) Status: Acute Category: Surgical Code(s): Z90.711 - Acquired absence of uterus with remaining cervical stump (4) Morbid obesity with body mass index (BMI) of 45.0 to 49.9 in adult Status: Acute Category: Medical Code(s): E66.01 - Morbid (severe) obesity due to excess calories; Z68.42 - Body mass index [BMI] 45.0-49.9, adult (5) Tobacco dependence syndrome Status: Chronic Category: Medical Code(s): F17.200 - Nicotine dependence, unspecified, uncomplicated (6) COVID-19 Status: Acute Category: Medical Code(s): U07.1 - COVID-19 - Assessment and plan all Dx Assessment and Plan for all problems:: Age: 46 yo Serum creatinine: 0.7 mg/dL Height: 65.0 Inches Weight (kg): 120.2 Assessment: IBW (kg): 57.00 Dosing wt(kg): 120.2 Estimated Creatinine clearance (ml/min): 90.4 CRCL method: Cockcroft and Gault using ibw(default). Drug selected: Vancomycin Loading dose (mg): 0 Vd (liters): 96.2 (factor used: 0.8 L/kg) Anthony (hr-1): 0.079 Half life (hrs): 8.77 Recommended dose: 2250 mg Interval: 12 hrs Infusion time (hrs): 2.0 Predicted peak (mcg/mL): 35.3 Predicted trough (mcg/mL): 16.02 Total body weight is being used for vancomycin dosing. Recommendations: Give
[2021-06-12 16:05] VITALS: BP 119/52; PULSE 72; RESP 18; TEMP 36.7; O2SAT 95
--- NOTE | 2021-06-12 16:12 | PC.NURSE ---
14:30 - PT in room with nurse to apply wound vac, Dehisced area at top of midline incision noted to be open. Wound vac applied by PT. Pt. tolerated well. No leaks noted on wound vac.
--- NOTE | 2021-06-12 16:15 | PC.NURSE ---
14:50 - 15:15 IV noted to be hard to flush, no blood return noted, Pt. reports IV site is painful. New 22g IV placed in L forearm after 4 attempts. Pt. tolerated well. IV removed from left wrist. 2X2 with coban in place. No needs noted, will continue to monitor.
--- NOTE | 2021-06-12 16:17 | PC.NURSE ---
15:39 Routine reassessment completed. VSS. Lungs CTA, Wound vac remains intact and functioning. Pt. rates pain at 6/10, See MAR for medications given. No further acute changes noted. Pt. denies needs, will continue to monitor.
--- NOTE | 2021-06-12 16:33 | HMH.PTWOUND ---
Rehab Inpt Wound Evaluation Rehab IP Wound Evaluation Start: 06/12/21 13:48 Freq: ONCE Status: Active Protocol: Document 06/12/21 16:22 WILLI (Rec: 06/12/21 16:33 WILLI [id number]) Rehab PT Wound Assessment Patient Status Premedicated Prior to Dressing Change No Subjective Subjective Pt reports c/o pain in distal incisional area - pt had open hysterectomy w/ surgical dehiscence - wound care order for wound vac placement wound is 16 cm long incision w / 2 areas of dehiscence 0.5 cm opening into abdomial cavity, and 3cm x 2 cm areaat distal end w/ redness, slough, and maceration Wound Lower Medial Abdomen Wound Type Incision Is This a Chronic Wound No Wound Length (cm) 16 Wound Width (cm) 2 Wound Bed Appearance Yellow,Necrotic,Tunneling Percentage of Slough (%) 20 Percentage of Eschar (Yellow) (%) 20 Surrounding Tissue Temperature Warm Wound Drainage Description Serosanguineous Drainage Odor No Odor Dressing Status Soiled Packing Type Woundvac Sponge Primary Dressing Film Dressing Wound Debridement Amount of Tissue None Removed Dressing Change Patient Tolerance Tolerated Well Plan/Recommendation Comment Pt has 2 minimal areas of dehiscence in incision, one proximal and one distal. Wound vac placed and connected - no leaks after application. Wound care team will continue consult w/ nsg for maintaining wound vac - wound care team to be available for consultation of wound care recommendations Eval Complexity Eval Charge Codes 65558 - Low Complexity PHYSICIAN CERTIFICATION: I certify the specified therapy services for Samantha Oliver are required, authorized, and reviewed every 30 days.
[2021-06-12 20:45] VITALS: BP 128/76; PULSE 66; RESP 18; TEMP 36.7; O2SAT 96
--- NOTE | 2021-06-12 21:06 | PC.NURSE ---
PT WANTING HER FOOD REHEATED THAT FAMILY HAD BROUGHT FROM [facility],PT MEDICATED WITH PERCOCET 5/325MG PO FOR PAIN OF 6 ON SCALE OF 0-10.
[2021-06-13 00:50] VITALS: BP 116/68; PULSE 74; RESP 18; TEMP 36.8; O2SAT 95
--- NOTE | 2021-06-13 00:50 | PC.NURSE ---
PT WOUNDVAC CONTINUES TO HAVE NO DRAINAGE IN CANISTER,SEAL APPROPRIATE WITH MACHINE ON,NO LEAKING NOTED.ASKED IF PT NEEDED ANYTHING FOR PAIN AND SHE SAID NO,PT V/S OBTAINED AND PT AFEBRILE-98.2
--- NOTE | 2021-06-13 02:25 | PC.NURSE ---
PT WAS SLEEPING,EASILY AROUSED.IV FLUSHED WITHOUT DIFF,ZOSYN 4.5 GM HUNG AT THIS TIME
--- NOTE | 2021-06-13 03:00 | PC.NURSE ---
FLUSHED IV AND VANCOMYCIN HUNG AT THIS TIME,NO NEEDS OR CONCERNS VOICED
[2021-06-13 05:10] VITALS: BP 124/70; PULSE 80; RESP 18; TEMP 36.8; O2SAT 96
--- NOTE | 2021-06-13 06:48 | PC.NURSE ---
NO ACUTE CHANGES FROM PREVIOUS ASSESSMENT,LUNGS CLEAR,RESP.EVEN AND UNLABORED,V/S STABLE AND PT HAS BEEN AFEBRILE,PT HAS BEEN MEDICATED X2 THIS SHIFT WITH PERCOCET 5/325MG.WOUND VAC IN PLACE WITHOUT ANY LEAKING AND NO DRAINAGE IN CANISTER.PT HAS RECIEVED ZOSYN AND VAN THIS SHIFT
[2021-06-13 08:00] VITALS: BP 127/65; PULSE 73; RESP 18; TEMP 36.7; O2SAT 96
--- NOTE | 2021-06-13 08:20 | PC.NURSE ---
07:55 Dr. Cosby at pt. door checking on pt. report given on no drainage in wound vac throughout night. reports he wants wound vac changed tomorrow as Inpatient or outpatient. Then would like pt. setup to have wound vac changed every 3 days. and would also like planner to be involved with care. Orders read back and verified.
--- NOTE | 2021-06-13 08:27 | HMH.GSPN ---
Subjective Narrative: She states she is fine with VAC dressing . Progress Note: A&P (1) Postoperative infection Status: Acute Assessment and plan: Continue VAC dressing for now. VAC to be changed tomorrow Continue antibiotics as per primary service (2) Seroma infection, postoperative Status: Acute (3) History of hysterectomy, supracervical abdominal (subtotal) Status: Acute (4) Morbid obesity with body mass index (BMI) of 45.0 to 49.9 in adult Status: Acute (5) Tobacco dependence syndrome Status: Chronic (6) COVID-19 Status: Acute Exam Vital signs and Labs for Last 24 Hours: Temp Pulse Resp BP Pulse Ox 98.1 F 73 18 127/65 96 06/13/21 08:00 06/13/21 08:00 06/13/21 08:00 06/13/21 08:00 06/13/21 08:00 I & O for Last 24 hours: Intake & Output 06/10/21 06/11/21 06/12/21 06/13/21 11:59 11:59 11:59 11:59 Intake Total 350 / 350 Balance 350 / 350 Weight 265 lb Microbiology Reports for the Last 24 Hours: Microbiology 06/12/21 12:45 Abdomen Gram Stain - Final 06/11/21 11:20 Incision - Abdominal Gram Stain - Final 06/11/21 11:20 Incision - Abdominal Wound Culture - Preliminary NO GROWTH AFTER 24 HOURS Narrative: Increased wound dehiscence prior to VAC placement yesterday. VAC placed without difficulty. - Constitutional no acute distress - *Routine Cardiovascular Exam Absent: tachycardia - *Routine Abdominal Exam Comments: Morning exam deferred to preserve PPE. Per nursing, VAC was placed without difficulty and the patient has had no issues . No sign of spreading cellulitis per nursing.
--- NOTE | 2021-06-13 10:39 | HMH.ACPN2 ---
Internal Medicine - PN: Subj *Date: 06/13/21 *Time: 10:39 Interval history: HD #3 Condition stable No accumulation from wound vac thus far She remains afebrile Tolerating diet, ambulating and voiding without difficulty Appreciate general surgery assistance Exam Vital signs and Labs for Last 24 Hours: Temp Pulse Resp BP Pulse Ox 98.1 F 73 18 127/65 96 06/13/21 08:00 06/13/21 08:00 06/13/21 08:00 06/13/21 08:00 06/13/21 08:00 I & O for Last 24 hours: Intake & Output 06/10/21 06/11/21 06/12/21 06/13/21 11:59 11:59 11:59 11:59 Intake Total 350 / 350 Balance 350 / 350 Weight 265 lb Microbiology Reports for the Last 24 Hours: Microbiology 06/12/21 12:45 Abdomen Gram Stain - Final 06/11/21 11:20 Incision - Abdominal Gram Stain - Final 06/11/21 11:20 Incision - Abdominal Wound Culture - Preliminary NO GROWTH AFTER 24 HOURS Narrative: CONSTITUTIONAL: no acute distress HEENT: mucous membranes moist PULMONARY: breathing unlabored without audible wheezes CV: no tachycardia or visible JVD; normal LE peripheral pulses ABD: soft, ND; appropriately tender. VAC in place SKIN: incision covered by VAC EXT: no edema LEs NEURO: alert/oriented, no altered mental status PSYCH: appropriate mood and demeanor Assessment and Plan (1) Postoperative infection Status: Acute Category: Medical Code(s): T81.40XA - Infection following a procedure, unspecified, initial encounter (2) Seroma infection, postoperative Status: Acute Category: Medical (3) History of hysterectomy, supracervical abdominal (subtotal) Status: Acute Category: Surgical Code(s): Z90.711 - Acquired absence of uterus with remaining cervical stump (4) Morbid obesity with body mass index (BMI) of 45.0 to 49.9 in adult Status: Acute Category: Medical Code(s): E66.01 - Morbid (severe) obesity due to excess calories; Z68.42 - Body mass index [BMI] 45.0-49.9, adult (5) Tobacco dependence syndrome Status: Chronic Category: Medical Code(s): F17.200 - Nicotine dependence, unspecified, uncomplicated (6) COVID-19 Status: Acute Category: Medical Code(s): U07.1 - COVID-19 - Assessment and plan all Dx Assessment and Plan for all problems:: Continue wound VAC, IV antibiotics Plan VAC change tomorrow Anticipate discharge home tomorrow on po antibiotics with f/u in wound clinic
--- NOTE | 2021-06-13 10:42 | CARE MANAGER ---
Addendum entered by Kerrie Pruitt RN 06/14/21 11:25: Depth of wound is 6.25cm Original Note: Wound is 16 cm long incision with 2 areas of dehiscense 0.5 cm and 3 cm x 2 cm. TRIPP Krishnamurthy, BSN, Pilates Instructor
--- NOTE | 2021-06-13 11:26 | PC.NURSE ---
10:20 - IV hard to flush and pt. reports site is burning. New IV attemptedin RFA, unable to obtain, this nurse attempted x2 yesterday. 10:30 Dr. Rausch in room. Nurse discussed with MD about IV going bad and possible need for u/s guided IV. MD states to have them attempt U/S guided IV. Order read back and verified. 1035 - 20g IV placed in RFA by Jessica Pre-op RN.
[2021-06-13 15:39] VITALS: BP 130/73; PULSE 72; RESP 18; TEMP 36.8; O2SAT 96
--- NOTE | 2021-06-13 18:18 | PC.NURSE ---
15:30 - Routine reassessment completed. No acute changes from previous assessment. Wound Vac remains intact, no drainage noted. Pt. tolerating well. Pt. rates pain at 5/10 refuses pain medication at this time. Pt. denies needs, will continue to monitor.
[2021-06-13 19:20] VITALS: BP 119/59; PULSE 68; RESP 16; TEMP 36.7; O2SAT 96
--- NOTE | 2021-06-14 02:35 | PC.NURSE ---
LAB CALLED AT THIS TIME. CONFIRMED WITH GISSEL IN LAB THAT SHE WOULD BE UP TO DRAW TIMED VANC TROUGH FOR 023
--- NOTE | 2021-06-14 04:00 | PC.NURSE ---
LAB CONTACTED AT THIS TIME REGARDING NO RESULT ON VANC TROUGH. VANC WAS DUE AT 0300.
[2021-06-14 04:05] LABS: Chloride 106 mmol/L (98-107); Sodium 140 mmol/L (136-145)
[2021-06-14 04:06] LABS: Potassium 3.6 mmoL/L (3.5-5.1)
[2021-06-14 04:09] LABS: Anion Gap 11.6 mEq/L (5-15); Blood Urea Nitrogen 10 mg/dl (7-17); Calcium 8.9 mg/dl (8.4-10.2); Carbon Dioxide 26 mmol/L (22.0-30.0); Creatinine Clearance Estimated 63 mL/min (50-200); Estimated Glomerular Filt Rate 60 ml/min (>60); GFR (African American) 72 ML/MIN (>60); Glucose 100 mg/dl (74-100)
[2021-06-14 04:15] VITALS: BP 125/65; PULSE 74; RESP 16; TEMP 36.7; O2SAT 95
--- NOTE | 2021-06-14 04:15 | PC.NURSE ---
During routine reassessment, wound vac noted to be draining approximately 5ml of Serosanguenous drainage that is dark pink in color. Wound vac remains firmly in place at this time and is appropriately sealed. No other changes this shift. Pt remains A&O x4, ambulates independently, lungs CTAB, bowels active X4 quadrants. VSS. Pt remains afebrile. Pain managed well with PRN medications. Call light in reach. Will continue to monitor.
[2021-06-14 04:27] LABS: Vancomycin,Trough 24.5 ug/mL (5.0-10.0)
--- NOTE | 2021-06-14 06:48 | HMH.GSPN ---
Subjective Narrative: No issues per nursing. The patient is currently resting. Progress Note: A&P (1) Postoperative infection Status: Acute Assessment and plan: Continue wound VAC for now. Wound VAC to be changed later today. If no concerning changes are noted at time of wound VAC replacement she will likely be stable for discharge home with outpatient follow-up. Antibiotics as per primary service (2) Seroma infection, postoperative Status: Acute (3) History of hysterectomy, supracervical abdominal (subtotal) Status: Acute (4) Morbid obesity with body mass index (BMI) of 45.0 to 49.9 in adult Status: Acute (5) Tobacco dependence syndrome Status: Chronic (6) COVID-19 Status: Acute Exam Vital signs and Labs for Last 24 Hours: Temp Pulse Resp BP Pulse Ox 98.1 F 74 16 125/65 95 06/14/21 04:15 06/14/21 04:15 06/14/21 04:15 06/14/21 04:15 06/14/21 04:15 Laboratory Results - last 24 hr 06/14/21 03:30: Sodium 140, Potassium 3.6, Chloride 106, Carbon Dioxide 26, Anion Gap 11.6, BUN 10, Creatinine 1.00 D, Estimated Creat Clear 63, Estimated GFR 60, Est GFR ( Amer) 72 D, Glucose 100, Calcium 8.9 06/14/21 03:30: Vancomycin Trough 24.5 H I & O for Last 24 hours: Intake & Output 06/11/21 06/12/21 06/13/21 06/14/21 11:59 11:59 11:59 11:59 Intake Total 350 / 350 Balance 350 / 350 Weight 265 lb Microbiology Reports for the Last 24 Hours: Microbiology 06/12/21 12:45 Abdomen Gram Stain - Final 06/12/21 12:45 Abdomen Wound Culture - Preliminary NO GROWTH AFTER 24 HOURS 06/11/21 11:20 Incision - Abdominal Gram Stain - Final 06/11/21 11:20 Incision - Abdominal Wound Culture - Preliminary NO GROWTH AFTER 48 HOURS 06/11/21 10:34 Blood Blood Culture - Preliminary NO GROWTH AFTER 48 HOURS 06/11/21 10:34 Blood Blood Culture - Preliminary NO GROWTH AFTER 48 HOURS - Constitutional no acute distress - *Routine Respiratory Exam Absent: respiratory distress - *Routine Cardiovascular Exam Absent: tachycardia
[2021-06-14 08:30] VITALS: BP 112/72; PULSE 80; RESP 18; TEMP 36.8; O2SAT 98
--- NOTE | 2021-06-14 08:50 | HMH.PHACONS ---
- Pharmacy Consult Date: 06/14/21 Time: 08:50 Referring provider: DR. FARNSWORTH Reason for Consult:: VANCOMYCIN LEVEL AND DOSE CHANGE Allergies and ADEs:: Allergies Allergy/AdvReac Type Severity Reaction Status Date / Time No Known Allergies Allergy Verified 06/11/21 09:01 Home Medications:: Home Medications Medication Instructions Recorded Confirmed Type modafinil 100 mg tablet 100 mg PO AM 11/07/20 06/11/21 History omeprazole 40 mg capsule,delayed 40 mg PO AM 11/07/20 06/11/21 History release paroxetine HCl 10 mg tablet 10 mg PO DAILY tab 11/20/20 06/11/21 History Spironolactone [Aldactone 100mg 100 mg PO DAILY 11/29/20 06/11/21 History Tab] desvenlafaxine succinate 50 mg 50 mg PO AM 03/28/21 06/11/21 History tablet,extended release 24 hr Umeclidinium Brm/Vilanterol Tr 1 inh INHALATION DAILY 05/02/21 06/11/21 History [Anoro Ellipta 62.5-25 Mcg INH] bisoproloL fumarate [Bisoprolol 5 mg PO DAILY 05/02/21 06/11/21 History Fumarate] albuterol sulfate 90 mcg/actuation 1 inh INHALATION Q6H PRN #8.5 g 05/25/21 06/11/21 Rx aerosol inhaler Furosemide [Lasix 40mg tablet] 40 mg PO DAILY 05/31/21 06/11/21 History Losartan Potassium [Cozaar 50mg 50 mg PO DAILY 05/31/21 06/11/21 History Tablets] Oxycodone HCl/Acetaminophen 1 tab PO Q4-6H PRN #30 tab 06/03/21 06/11/21 Rx [Percocet 5/325mg tablet] Cyclobenzaprine HCl 5 mg PO TIDP PRN 06/11/21 06/11/21 History [Cyclobenzaprine 5mg Tab*] cephALEXin [cephALEXin 500mg 500 mg PO TID 06/11/21 06/11/21 History capsule*] Height: 1.65 m Weight: 120.202 kg Laboratory Results:: Laboratory Results - last 24 hr 06/14/21 03:30: Sodium 140, Potassium 3.6, Chloride 106, Carbon Dioxide 26, Anion Gap 11.6, BUN 10, Creatinine 1.00 D, Estimated Creat Clear 63, Estimated GFR 60, Est GFR ( Amer) 72 D, Glucose 100, Calcium 8.9 06/14/21 03:30: Vancomycin Trough 24.5 H Medical History: Reports:: Anxiety, Asthma, Chronic Obstructive Pulmonary Disease (COPD), Coronary Artery Disease, Depression, Hyperlipidemia, Hypertension, Kidney Stones, Migraine, Palpitations, Urinary Tract Infection Denies:: Cancer, Diabetes Mellitus Type 1, Diabetes Mellitus Type 2, Internal Pacemaker, MRSA, Seizures Assessment and Plan (1) Postoperative infection Status: Acute Category: Medical Code(s): T81.40XA - Infection following a procedure, unspecified, initial encounter (2) Seroma infection, postoperative Status: Acute Category: Medical (3) History of hysterectomy, supracervical abdominal (subtotal) Status: Acute Category: Surgical Code(s): Z90.711 - Acquired absence of uterus with remaining cervical stump (4) Morbid obesity with body mass index (BMI) of 45.0 to 49.9 in adult Status: Acute Category: Medical Code(s): E66.01 - Morbid (severe) obesity due to excess calories; Z68.42 - Body mass index [BMI] 45.0-49.9, adult (5) Tobacco dependence syndrome Status: Chronic Category: Medical Code(s): F17.200 - Nicotine dependence, unspecified, uncomplicated (6) COVID-19 Status: Acute Category: Medical Code(s): U07.1 - COVID-19 - Assessment and plan all Dx Assessment and Plan for all problems:: PATIENT'S VANCOMYCIN TROUGH LEVEL THIS AM WAS 24.5 MCG/ML. RECOMMENDED CHANGING DOSE FROM VANCOMYCIN 2250 MG Q12H TO VANCOMYCIN 1500 MG Q12H TO RESTART AT 1100 THIS MORNING.
[2021-06-14 09:42] VITALS: O2SAT 98
--- NOTE | 2021-06-14 11:27 | HMH.OBDCSM ---
General - General Admission date:: 06/11/21 Discharge date: 06/14/21 Hospital Course Hospital Course: Admitted for IV antibiotics and further assessment with imaging CT abd/pelvis did not show any evidence of pelvic abscess but did show some fluid and inflammation in subcutaneous tissues General surgery consult was obtained and wound vac was placed She has remained afebrile with normal WBC Abd pain has improved and clinically she feels better VAC output small She is tolerating a regular diet, ambulating and voiding without difficulty She is discharged home on HD #4 in stable condition Wound vac dressing will be changed prior to discharge and home health will be arranged Rhogam Administration: Not Indicated Objective Vital signs: Temp Pulse Resp BP Pulse Ox 98.2 F 80 18 112/72 98 06/14/21 08:30 06/14/21 08:30 06/14/21 08:30 06/14/21 08:30 06/14/21 09:42 no acute distress - *Routine Respiratory Exam Absent: respiratory distress - *Routine Abdominal Exam Present: soft. Absent: tenderness, distended - *Routine Skin Exam Comments: wound vac in place Results Labs on day of discharge: Labs from last 24 hours 06/14/21 06/14/21 03:30 03:30 Sodium 140 Potassium 3.6 Chloride 106 Carbon Dioxide 26 Anion Gap 11.6 BUN 10 Creatinine 1.00 D Estimated Creat Clear 63 Estimated GFR 60 Est GFR ( Amer) 72 D Glucose 100 Calcium 8.9 Vancomycin Trough 24.5 H Preliminary micro results at discharge 06/11/21 11:20 Wound Culture - Preliminary Incision - Abdominal 06/12/21 12:45 Wound Culture - Preliminary Abdomen 06/11/21 10:34 Blood Culture - Preliminary Blood NO GROWTH AFTER 48 HOURS 06/11/21 10:34 Blood Culture - Preliminary Blood NO GROWTH AFTER 48 HOURS DS: Diagnosis - Discharge Diagnosis (1) Postoperative infection Status: Acute (2) Seroma infection, postoperative Status: Acute (3) History of hysterectomy, supracervical abdominal (subtotal) Status: Acute (4) Morbid obesity with body mass index (BMI) of 45.0 to 49.9 in adult Status: Acute (5) Tobacco dependence syndrome Status: Chronic (6) COVID-19 Status: Acute Discharge Plan - Patient Discharge Instructions ACTIVITY: Continue current activity DIET: regular diet Additional Instructions: Wound clinic Patient Instructions: How to Care for a Surgical Wound, DI for Surgical Site Infection - Follow up Plan Follow up with: Chioma Rausch MD [Staff Physician] - Disposition: Home, Self-Care Condition at discharge:: Stable Home Medications: Home Medications Medication Instructions Recorded Confirmed Type modafinil 100 mg tablet 100 mg PO AM 11/07/20 06/11/21 History omeprazole 40 mg capsule,delayed 40 mg PO AM 11/07/20 06/11/21 History release paroxetine HCl 10 mg tablet 10 mg PO DAILY tab 11/20/20 06/11/21 History Spironolactone [Aldactone 100mg 100 mg PO DAILY 11/29/20 06/11/21 History Tab] desvenlafaxine succinate 50 mg 50 mg PO AM 03/28/21 06/11/21 History tablet,extended release 24 hr Umeclidinium Brm/Vilanterol Tr 1 inh INHALATION DAILY 05/02/21 06/11/21 History [Anoro Ellipta 62.5-25 Mcg INH] bisoproloL fumarate [Bisoprolol 5 mg PO DAILY 05/02/21 06/11/21 History Fumarate] albuterol sulfate 90 mcg/actuation 1 inh INHALATION Q6H PRN #8.5 g 05/25/21 06/11/21 Rx aerosol inhaler Furosemide [Lasix 40mg tablet] 40 mg PO DAILY 05/31/21 06/11/21 History Losartan Potassium [Cozaar 50mg 50 mg PO DAILY 05/31/21 06/11/21 History Tablets] Oxycodone HCl/Acetaminophen 1 tab PO Q4-6H PRN #30 tab 06/03/21 06/11/21 Rx [Percocet 5/325mg tablet] Cyclobenzaprine HCl 5 mg PO TIDP PRN 06/11/21 06/11/21 History [Cyclobenzaprine 5mg Tab*] cephALEXin [cephALEXin 500mg 500 mg PO TID 06/11/21 06/11/21 History capsule*] Amoxicillin/Potassium Clav 1 tab PO Q12H 10 Days #20 tab 06/14/21 Rx [Augmentin 8
--- NOTE | 2021-06-14 12:00 | SW/DCPLANNER ---
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 Addendum entered by Lauren Sparks 06/14/21 15:13: I have left a voicemail w/ Sofia at [facility] regarding referral and start of services for tomorrow. I will follow up with patient once I receive a call back from home health. Addendum entered by Lauren Sparks 06/14/21 12:58: [facility] can not accept this patient due to not having staff for the area the patient resides. Patient information/order has now been faxed to [facility]. Original Note: SET UP HOME HEALTH FOR THIS PATIENT FOR WOUND CARE, PATIENT WILL HAVE A WOUND VAC DELIVERED BY [facility] AND I HAVE SENT REFERRAL TO [facility] OUT OF [facility].. SHE WILL RETURN HOME WITH A DSG CHANGE UNTIL HER VAC CAN BE DELIVERED AND PUT ON BY HOME HEALTH NURSE...IF [facility] DOES NOT TAKE THE PATIENT IT WILL BE SENT TO [facility]...
--- NOTE | 2021-06-14 12:01 | PC.NURSE ---
Per Gudelia (Case Management), Home Health will come to pt's home to see her and place a wound vac tomorrow.
--- NOTE | 2021-06-14 12:20 | PC.NURSE ---
Wound Vac removed and 4x4's and tape applied for discharge home.
--- NOTE | 2021-06-14 13:00 | PC.NURSE ---
IV discontinued with catheter intact. Tolerated well. 2x2 gauze and coban applied to site.
== END 2021-06-14 13:50 | disposition home or self-care (01) ==
PROVIDERS: Admitting Provider Obstetrics & Gynecology; PCP Nurse Practitioner Family; Visit Provider Obstetrics & Gynecology
DX: T81.41XA Infection following a procedure, superficial incisional surgical site, initial encounter (principal); N99.842 Postprocedural seroma of a genitourinary system organ or structure following a genitourinary system procedure; Z90.711 Acquired absence of uterus with remaining cervical stump; J44.9 Chronic obstructive pulmonary disease, unspecified; I25.10 Atherosclerotic heart disease of native coronary artery without angina pectoris; I10 Essential (primary) hypertension; E78.5 Hyperlipidemia, unspecified; F17.210 Nicotine dependence, cigarettes, uncomplicated; U07.1 COVID-19; Z68.42 Body mass index [BMI] 45.0-49.9, adult; E66.01 Morbid (severe) obesity due to excess calories
CPT/HCPCS: 36415; 74178; 80048; 80053; 80202; 85025; 87040; 87070; 87077; 87186; 87205; C9803; G0378; J2405; J2543; J3370; Q9967; U0003; U0005

== ENCOUNTER → 2021-06-28 14:57 | Outpatient (CLI) | payer OTHER, SELFPAY | PROVIDERS: Visit Provider Obstetrics & Gynecology | DX: T81.40XA Infection following a procedure, unspecified, initial encounter (principal); B96.1 Klebsiella pneumoniae [K. pneumoniae] as the cause of diseases classified elsewhere; B95.2 Enterococcus as the cause of diseases classified elsewhere | CPT/HCPCS: 87070; 87077; 87186; 87205 ==

== ENCOUNTER 2021-08-22 09:30 | Outpatient (RCR) | payer OTHER, SELFPAY ==
--- NOTE | 2021-06-21 10:25 | HMH.PTOPWND ---
Rehab Outpt Wound Evaluation Rehab OP Wound Evaluation Start: 06/21/21 09:07 Freq: Status: Active Protocol: Document 06/21/21 10:00 JEFRY (Rec: 06/21/21 10:24 PHOTREVON [id number]) Electronically Signed By Alf Brown, PT 06/21/21 10:00 Subjective/History History History Pt is 46 yowf who presents with poor incision healing S/P REYNOLD/BSO performed ~ 3 wks ago . She was admitted to the hospital ~ 1 wk ago for drainage from the incision and the general surgeon opted for waound VAC dressing placement at that time. Wound cultures were also obtained which were positive for E-Coli. The wound VAC dressing has been collecting minimal drainage since it was first applied per pt report. She reports PMH of anxiety, asthma, COPD, depression, HL, HTN, kidney stones, migraines, prior hernia sx in same area. Subjective Subjective She reports no c/o pain at rest. She is not happy with the wound VAC due to lack of drainage in the canister and maceration around the inferior incisional wound under the transparent drape dressing. Wound Eval Subjective History Subjective Upon examination the superior wound has continued to deepen (7.8 cm) but is very small at the opening. The inferior wound expressed copious amounts of serosanguineous drainage upon exploration with long handled swab and has extensive depth as well (12.8 cm). These two tunnels are quite small in circumference, but do communicate with each other. Wound Lower Abdomen Wound Type Incision Is This a Chronic Wound Yes Wound Length (cm) 4.8 Wound Width (cm) 1.8 Wound Depth (cm) 12.8 Wound Bed Appearance Yellow Percentage of Slough (%) 100 Wound Margins Description
== END 2021-08-22 09:35 | disposition home or self-care (01) ==
LOC: PT 09:30
PROVIDERS: PCP Nurse Practitioner Family; Visit Provider Obstetrics & Gynecology
DX: T81.40XA Infection following a procedure, unspecified, initial encounter (principal); L76.34 Postprocedural seroma of skin and subcutaneous tissue following other procedure
CPT/HCPCS: 97163; 97164; 97597; 97598

== ENCOUNTER → 2021-12-04 14:07 | Outpatient (CLI) | payer OTHER, SELFPAY | PROVIDERS: PCP Nurse Practitioner Family; Visit Provider Internal Medicine | DX: R00.2 Palpitations (principal) | CPT/HCPCS: 93270 ==

== ENCOUNTER → 2023-04-17 23:00 | Outpatient (CLI) | payer BC, SELFPAY ==
[2023-04-17 20:54] LABS: Basophils # 0.1 K/mm3 (0-0.2); Basophils % 0.7 % (0.1-2.0); Eosinophils # 0.4 K/mm3 (0.0-0.4); Eosinophils % 2.3 % (0.1-12.0); Hematocrit 40.7 % (37.0-47.0); Hemoglobin 13.8 g/dL (12.2-16.2); Lymphocytes # 3.1 K/mm3 (0.7-4.5); Lymphocytes % 18.3 % (10-50); Mean Corpuscular HGB Conc 33.8 g/dL (31.8-35.4); Mean Corpuscular Volume 88.8 fl (81-99); Mean Platelet Volume 9.5 fl (7.4-10.4); Monocytes % 6.1 % (1.7-9.3); Neutrophils # 12.3 K/mm3 (1.8-7.8); Neutrophils % 72.5 % (37.0-80.0); Platelet Count 405 K/mm3 (142-424); Red Blood Count 4.59 M/mm3 (4.20-5.40); Red Cell Distribution Width 14.5 % (11.5-17.5); White Blood Count 16.9 K/mm3 (4.8-10.8)
[2023-04-17 21:02] LABS: MANUAL DIFFERENTIAL MANUAL DIFFERENTIAL (MANUAL DIFF)
[2023-04-17 21:30] LABS: Alanine Aminotransferase 29 U/L (12-78); Albumin Level 4.6 g/dl (3.5-5.0); Albumin/Globulin Ratio 1.4 (1.1-1.8); Alkaline Phosphatase 84 U/L (38-126); Anion Gap 16.7 mEq/L (5-15); Aspartate Amino Transferase 30 U/L (14-36); Bilirubin,Total 0.3 mg/dl (0.2-1.3); Blood Urea Nitrogen 19 mg/dl (7-17); Calcium 10.1 mg/dl (8.4-10.2); Carbon Dioxide 25 mmol/L (22.0-30.0); Chloride 99 mmol/L (98-107); Chol/HDL Ratio 4.1 (1-3.5); Cholesterol 227 mg/dl (140-200); Estimated Glomerular Filt Rate 44 ml/min (>60); GFR (African American) 53 ML/MIN (>60); Globulin 3.3 g/dL (1.3-3.2); Glucose 120 mg/dl (74-100); HDL Cholesterol 55 mg/dl (40-60); Potassium 3.7 mmoL/L (3.5-5.1); Sodium 137 mmol/L (136-145); Total Protein,Serum 7.9 g/dl (6.3-8.2); Triglycerides 145 mg/dl (30-150); VLDL Cholesterol 29 mg/dL (0-40)
[2023-04-17 21:41] LABS: Direct LDL Cholesterol 116.47 mg/dL (100-129)
[2023-04-17 21:46] LABS: 25-OH Vitamin D, Total 39.1 ng/mL (30-100)
[2023-04-17 22:02] LABS: Thyroid Stimulating Hormone 1.61 uIU/mL (0.465-4.68)
[2023-04-17 22:35] LABS: Eosinophils % 2 % (0-3); Lymphocytes % 25 % (10-50); Monocytes % 2 % (2-9); Neutrophils % 71 % (42-76); RBC Morphology Normal; Total Cells Counted 100
[2023-04-17 22:36] LABS: Platelet Estimate Normal
== END ==
PROVIDERS: PCP Nurse Practitioner Family; Visit Provider Nurse Practitioner Family
DX: I10 Essential (primary) hypertension (principal); E66.9 Obesity, unspecified; Z68.41 Body mass index [BMI] 40.0-44.9, adult; Z79.899 Other long term (current) drug therapy
CPT/HCPCS: 80053; 80061; 82306; 83036; 84443; 85007; 85025

== ENCOUNTER 2023-12-31 09:36 | Outpatient (CLI) | payer OTHER, SELFPAY ==
[2023-12-31 09:58] LABS: Basophils # 0.2 K/mm3 (0-0.2); Basophils % 1.6 % (0.1-2.0); Eosinophils # 0.5 K/mm3 (0.0-0.4); Eosinophils % 4.4 % (0.1-12.0); Hematocrit 37.8 % (37.0-47.0); Hemoglobin 12.5 g/dL (12.2-16.2); Lymphocytes # 2.5 K/mm3 (0.7-4.5); Lymphocytes % 19.8 % (10-50); Mean Corpuscular Hemoglobin 29.1 pg (27.0-31.2); Mean Corpuscular Volume 88.2 fl (81-99); Mean Platelet Volume 8.1 fl (7.4-10.4); Monocytes # 0.6 K/mm3 (0.1-1.0); Neutrophils # 8.6 K/mm3 (1.8-7.8); Neutrophils % 69.2 % (37.0-80.0); Platelet Count 464 K/mm3 (142-424); Red Blood Count 4.29 M/mm3 (4.20-5.40); Red Cell Distribution Width 15.1 % (11.5-17.5); White Blood Count 12.5 K/mm3 (4.8-10.8)
[2023-12-31 10:49] LABS: Alanine Aminotransferase 23 U/L (12-78); Albumin Level 4.2 g/dl (3.5-5.0); Alkaline Phosphatase 87 U/L (38-126); Anion Gap 13.1 mEq/L (5-15); Aspartate Amino Transferase 26 U/L (14-36); Bilirubin,Indirect 0.4 mg/dL (0.0-0.9); Bilirubin,Total 0.4 mg/dl (0.2-1.3); Bilirubin,Unconjugated 0.5 mg/dL (0.0-1.1); Blood Urea Nitrogen 14 mg/dl (7-17); Calcium 10.5 mg/dl (8.4-10.2); Carbon Dioxide 27 mmol/L (22.0-30.0); Chloride 103 mmol/L (98-107); Chol/HDL Ratio 3.3 (1-3.5); Cholesterol 228 mg/dl (140-200); Estimated Glomerular Filt Rate 67 ml/min (>60); GFR (African American) 81 ML/MIN (>60); Glucose 98 mg/dl (74-100); HDL Cholesterol 69 mg/dl (40-60); Magnesium 1.6 mg/dl (1.6-2.3); Potassium 4.1 mmoL/L (3.5-5.1); Sodium 139 mmol/L (136-145); Total Protein,Serum 7.7 g/dl (6.3-8.2); Triglycerides 155 mg/dl (30-150); VLDL Cholesterol 31 mg/dL (0-40)
[2023-12-31 11:00] LABS: Direct LDL Cholesterol 92.87 mg/dL (100-129)
[2023-12-31 11:22] LABS: Thyroid Stimulating Hormone < 0.02 uIU/mL (0.465-4.68)
== END 2023-12-31 23:59 | disposition home or self-care (01) ==
LOC: LAB 09:37
PROVIDERS: PCP Nurse Practitioner Family; Visit Provider Physician Assistant
DX: R06.00 Dyspnea, unspecified (principal); R07.89 Other chest pain; K21.9 Gastro-esophageal reflux disease without esophagitis; I11.9 Hypertensive heart disease without heart failure
CPT/HCPCS: 36415; 80048; 80061; 80076; 83735; 84439; 84443; 85025

== ENCOUNTER 2024-01-07 10:34 | Outpatient (CLI) | payer OTHER, SELFPAY ==
--- NOTE | 2024-01-07 10:35 | NM_ITS ---
APPROVED REPORT Exam: Nuclear Stress Test Indication: Chest pain, SOB, HTN, High cholesterol, Family history Patient Location: Outpatient Stress Tech: Kayce Snider [place] Tech:Kamila Leon, ARRT, RT (R)(N) Ht: 5 ft 5 in Wt: 245 lbs Bra Size: 40DD HR: 78 bpm BP: 162/79 mmHg BSA: 2.16 m2 TID: 1.27 BMI: 40.7 History: Chest pain, SOB, HTN, High cholesterol, Family history Procedure: Patient received 0.4 mg of intravenous Lexiscan, resting heart rate 78 bpm, resting blood pressure 162/79 mmHg, with Lexiscan maximum heart rate achieved was 112 bpm which is % of the maximum predicted heart rate and blood pressure was 179/89 mmHg. With Lexiscan, patient denied any complaint of chest pain. Cardiac Stress and Resting SPECT Images: Cardiac Stress and Resting SPECT images were obtained using technetium 99m Myoview 32.9 mCi stress and 10.58 mCi at rest. Technically difficult study. There is significant soft tissue and diaphragmatic overlap with the cardiac borders. This may affect the diagnostic interpretation of the study findings. Resting and stress imaging in supine positions demonstrate a medium sized, moderate, fixed perfusion defect in the anterior and inferior LV azul. These defects are no longer visualized with prone stress imaging. Findings are suggestive of soft tissue and diaphragmatic attenuation. There is increase in transient ischemic dilatation ratio (TID 1.27), suggestive of possible multivessel disease or balanced ischemia. Gated imaging demonstrates normal global and regional LV systolic function. LVEF is calculated at 71%. Conclusion: Technically difficult study due to significant soft tissue and diaphragmatic overlap with the cardiac borders. No definite evidence of fixed or reversible perfusion defects. There is increase in transient ischemic dilatation ratio (TID 1.27), suggestive of possible multivessel disease or balanced ischemia. Gated imaging demonstrates normal global and regional LV systolic function. LVEF is calculated at 71%. In the setting of young age, normal LVEF, and presence of TID, further evaluation noninvasively with CCTA is suggested prior to proceeding with invasive coronary angiography to rule out multivessel disease. Electronically signed by : Dorothy Cabral MD 01/08/2024 01:01:51
--- NOTE | 2024-01-07 12:45 | CA_ITS ---
APPROVED REPORT EXAM: Comprehensive 2D, Doppler, and color-flow Echocardiogram Sales Planning Manager: DENISE Nettles, RVS Ht: 5 ft 5 in Wt: 256lbs BSA: 2.20 BP: 144/75 mmHg Indications: CP, HTN, Abn ekg, Diastolic dysfunction, Dyspnea, Ex-smoker 2D Dimensions LA Volume 69.40 mL LA Volume Index 31.448075 mL/m2 (M/F) 16-34 M-Mode Dimensions RVDd 2.16 cm (0.9-2.6) LA Diam 3.96 cm (1.9-4.0) LVDd 5.08 cm (3.5-5.7) LVDs 3.83 cm (3.5-5.7) IVSd 0.87 cm (0.6-1.1) PWd 0.98 cm (0.6-1.1) EF (Teich) 48.60% EPSs 0.30 cm FS 24.60% EDV (Teich) 122.70 mL TAPSE 2.26 (<1.7) ESV (Teich) 63.10 mL LV Diastology E Decel Time 183 (160-240 msec) E/A Ratio 1.40 MED A' 11.20 cm/s LAT A' 6.10 cm/s Aortic Valve OLIMPIA Index 1.06 cm2/m2 AoV Peak Dereje. 154.0 (50-130 cm/s) AO Peak GR. 9.50 mmHg AO Mean GR. 4.40 (<5 mmHg) AO VTI 33.3 (18-25 cm) OLIMPIA (VTI) 2.39 (2.5-4.5 cm2) Mitral Valve MV A Velocity 70.0 (40-130 cm/s) E/A Ratio 1.40 MV Mean Gr. 1.30 (<2mmHg) Tricuspid Valve TR P. Velocity 197.00 cm/s RAP Estimate 10.00 mmHg RVSP 25.50 mmHg Left Ventricle The left ventricle is normal size. The left ventricular systolic function is normal. The left ventricular ejection fraction is within the normal range. There is increased LV wall thickness. There is normal LV segmental wall motion. The left ventricular diastolic function is normal. LVEF is 55%. Right Ventricle The right ventricle is normal size. The right ventricular systolic function is normal. Atria Left atrium is mildly dilated. The right atrium size is normal. There is no Doppler evidence of interatrial shunt. Aortic Valve The aortic valve opens well. There is no aortic valvular stenosis. No aortic regurgitation is present. Mitral Valve The mitral valve is normal in structure. No evidence of mitral valve stenosis. Trace mitral regurgitation. Tricuspid Valve The tricuspid valve leaflets are thin and pliable. Trace tricuspid regurgitation. There is insufficient TR jet to estimate RVSP. Pulmonic Valve The pulmonary valve is normal in structure. Trace pulmonic regurgitation. Great Vessels The aortic root is normal in size. The ascending aorta is not well-visualized. IVC is normal in size and collapses >50% with inspiration. Pericardium There is no pericardial effusion. Other Information Study Quality: Fair Conclusion Normal biventricular systolic function. Mild LA dilation. No significant valvular stenosis or regurgitation. Electronically signed by : Dorothy Cabral MD 01/08/2024 00:43:06
--- NOTE | 2024-01-07 13:39 | CA_ITS ---
APPROVED REPORT Exam: Pharmacologic Technologist: Kayce Dc, Ht: 5 ft 5 in Wt: 256 lbs BSA: 2.20 m2 HR: 79 bpm BP: 162/79 mmHg Rhythm: NSR Indications: SOA, CP Medical History Medications: Omeprazole,,,,, Pristiq,,,,, Albuterol,,,,, Acetaminophen,,,,, Ibuprofen,,,,, PaROXETINE,,,,, BisOPROLOL,,,,, SpirOnolactone,,,,, ANoro Ellipta,,,,, Furosemide,,,,, Stress Test Details Test: LEXISCAN Reason for pharmacologic stress test: physical limitation. HR Resting HR: 78 bpm Max Heart Rate (APMHR): 172 bpm Max HR Achieved: 112 bpm Target HR (85% APMHR): 146 bpm % of APMHR: 65 Recovery HR: 84 bpm BP Resting BP: 162.0/79.0 mmHg Max BP: 179.0/89.0 mmHg Recovery BP: 160.0/78.0 mmHg ECG Resting ECG: NSR Stress ECG: No significant ST changes Arrhythmia: None Clinical Exercise duration: 04:00 min Highest Stage Achieved: Stress ECG Conclusion Symptoms: Mild SOA, mild DONG, mild burning CP. Arrhythmias/Ectopy: None. ST-T Changes: No significant ST changes Conclusion: Unremarkable ECG portion of Lexiscan stress test. Myoview images reported separately. Test Summary REST 04:01 . . 78 . 162/ 79 . . Stage 1 01:00 . . 109 . . . . Stage 2 01:00 . . 104 . . . . Stage 3 01:00 . . 94 . 179/ 89 . . Stage 4 01:00 . . 89 . 164/ 78 . Stop exercise at 04:00 RECOVERY 01:00 . . 88 . . . . RECOVERY 02:00 . . 85 . . . . RECOVERY 03:00 . . 77 . 144/ 73 . . RECOVERY 03:41 . . 90 . 160/ 78 . . Electronically signed by : Dorothy Cabral MD 01/08/2024 00:59:23
== END 2024-01-07 23:59 | disposition home or self-care (01) ==
LOC: RAD 10:34
PROVIDERS: PCP Nurse Practitioner Family; Visit Provider Physician Assistant
DX: R07.89 Other chest pain (principal); R06.00 Dyspnea, unspecified; I11.9 Hypertensive heart disease without heart failure; F17.210 Nicotine dependence, cigarettes, uncomplicated
CPT/HCPCS: 78452; 93017; 93018; 93306; A9502; J2785

== ENCOUNTER 2024-01-20 14:30 | Outpatient (CLI) | payer OTHER, SELFPAY ==
[2024-01-20 19:27] LABS: Thyroid Stimulating Hormone < 0.02 uIU/mL (0.465-4.68)
[2024-01-22 08:23] LABS: Triiodothyronine (T3) Free 3.9 pg/mL (2.0-4.4)
[2024-01-30 09:58] LABS: Triiodothyronine (T3) Reverse 25.3
== END 2024-01-20 23:59 | disposition home or self-care (01) ==
LOC: LAB.DROPOF 01-21 14:14
PROVIDERS: PCP Nurse Practitioner Family; Visit Provider Nurse Practitioner Family
DX: I10 Essential (primary) hypertension (principal); R06.02 Shortness of breath; E66.01 Morbid (severe) obesity due to excess calories; Z68.41 Body mass index [BMI] 40.0-44.9, adult; F17.210 Nicotine dependence, cigarettes, uncomplicated
CPT/HCPCS: 84439; 84443; 84481; 84482

== ENCOUNTER 2024-02-20 08:45 | Outpatient (CLI) | payer OTHER, SELFPAY ==
--- NOTE | 2024-02-20 09:01 | CT_ITS ---
APPROVED REPORT Medicaid Service Coordinator: CLINICAL INDICATION Chest Pain, TID on nuclear stress test TECHNIQUE Image Acquisition: A 128 slice MDCT scanner (Mogotesta View) was used for data acquisition. A noncontrast coronary calcium scan was performed. A CT attenuation threshold of 130 Hounsfield units (HU) was used for the detection of calcium in contiguous voxels of 1 sq mm in area to be counted as individual lesions. Bolus tracking in the ascending aorta with a threshold of 180 HU was performed. Immediately afterwards, ECG synchronized cardiac CT was then performed from the cardiac base to apex using retrospective gating with ECG tube current modulation. A total of 85 mL of Isovue 370 mg/mL contrast medium was administered at 5 mL/sec followed by a saline flush using a biphasic injection protocol. A tube voltage of 120 KVp was used. The patient received the following medications prior to the cardiac CT. 0.8 mg of sublingual nitroglycerin The average heart rate at the time of acquisition was 65 bpm and regular. Image Reconstruction Transaxial images were reconstructed at 0.67 mm slide thickness. Data was reviewed interactively on an advanced workstation capable of 2 and 3-dimensional displays in all conventional reconstruction formats, including multiplanar reformations, maximum intensity projections, curved multiplanar reformations, and volume rendered reconstructions. When applicable, selected routine images describing the relevant coronary anatomy and pathology were saved and sent to PACS. Complications None Technical Quality Overall image quality was fair. Coronary artery opacification was adequate. Total DLP (Dose-Length Product) is 1668.6 mGy-cm. The reported value represents the total of one or more individual components during the CT acquisition of this date and at this time, and as such, the same value may appear in more than one CT report depending on the interpreting/reporting physicians. COMPARISON None FINDINGS CT Coronary Calcium Scoring LMA (Left Main Artery) = 0 LAD (Left Anterior Descending) = 0 LCX (Left Coronary Circumflex) = 0 RCA (Right Coronary Artery) = 0 Total Calcium Score = 0 using the AJ-130 method. The interpretation of the calcium heart score is based on the following continuum*: 0 = no calcified plaque detected (risk of coronary artery disease is very low ??? less than 5%) 1-10 = calcium detected in extremely minimal levels (risk of coronary diseases is still low ??? less than 10%) 11-100 = mild levels of plaque detected with certainty (mild or minimal narrowing of heart arteries is likely) 101-400 = definite,at least moderate levels of plaque detected (relatively high risk of a heart attack within 3-5 years) >401-999 = extensive levels of plaque detected (high risk of heart attack, high levels of vascular disease are present, high likelihood of at least one significant coronary narrowing) *The calcium heart score quantifies the burden of coronary calcification/plaque in the coronary arteries. The calcium heart score is not able to evaluate the presence or burden of non-calcified (i.e. soft) plaque. There is no identifiable calcification in the aortic valve, mitral annulus or mitral valve, pericardium, or myocardium. Coronary CT Angiography The coronary arterial system is right dominant. Quantitative Stenosis Grading: Left Main (LM): The left main originates normally from the left sinus of Valsalva. The LM bifurcates into the left anterior descending artery and left circumflex artery. The LM is patent with no evidence of atherosclerosis. Left Anterior Descending (LAD) and Diagonal Branches: The LAD gives off 2 diagonal branch(es). The LAD and its branches are patent with no evidence of atherosclerosis. There is no evidence of LAD-myocardial bridge. Left Circumflex (LCX) and Obtuse Marginals (OM): The LCX gives off 1 Obtuse Marginal (OM) branch(es). The LCX and its branches are patent with no evidence of atherosclerosis. Right Coronary Artery (RCA): The RCA originates normally from the right sinus of Valsalva. The RCA gives off a posterior descending artery (PDA) and posterolateral (PL) branches. The RCA and its branches are patent with no evidence of atherosclerosis. Non-Coronary Cardiac Findings: Analysis of the left ventricular (LV) structure and function was performed after 3-D reconstruction of the LV from axial images, with user-corrected automatic contouring for assessment of LV volumes and user-defined reconstruction from oblique planes for measurement of 3-D cardiac structure and function. -The left ventricle systolic function is normal. -There is no left atrial appendage filling defect. Two right pulmonary veins and two left pulmonary veins drain normally into the left atrium. -No pericardial thickening or calcification. -Central and branch pulmonary arteries in the [id number] are unremarkable. -Thoracic aorta within the visualized thoracic aortic-branches in the [id number] is unremarkable. Extracardiac Structures No significant extra-cardiac findings. Note, however, that this study is focused on the cardiac findings. IMPRESSION -Absence of coronary calcification with an Agatston score = 0 using the AJ-130 method. -No evidence of significant flow-limiting atherosclerosis of the coronary arteries. -No evidence of coronary anomalies or myocardial bridges. -CAD-RADS 0. Management recommendations per ACC/AHA guidelines*, as clinically appropriate. *Recommendations: CAD RADS 0: Reassurance. Consider non-atherosclerotic causes of chest pain. CAD RADS 1: Consider non-atherosclerotic causes of chest pain. Consider preventive therapy and risk factor modification. CAD RADS 2: Consider non-atherosclerotic causes of chest pain. Consider preventive therapy and risk factor modification, particularly for patients with nonobstructive plaque in multiple segments. CAD RADS 3: Consider further functional testing. Consider symptom-guided anti-ischemic and preventive pharmacotherapy as well as risk factor modification per published guideline statements. CAD RADS 4A: Consider further functional testing or invasive coronary angiography with revascularization per published guideline statements. Consider symptom-guided anti-ischemic and preventive pharmacotherapy as well as risk factor modification per published guideline statements. CAD RADS 4B: Invasive coronary angiography recommended with revascularization per published guideline statements. Consider symptom-guided anti-ischemic and preventive pharmacotherapy as well as risk factor modification per published guideline statements. CAD RADS 5: Consider invasive angiography and/or viability assessment with revascularization per published guideline statements. Consider symptom-guided anti-ischemic and preventive pharmacotherapy as well as risk factor modification per published guideline statements. CRITICAL RESULT None COMMUNICATION Per this written report The coronary and cardiac findings of this CCTA were reviewed, reported, and signed by Man Cabral MD ([employer]) Conclusion Electronically signed by : Dorothy Cabral MD 02/23/2024 12:17:00
[2024-02-20 09:13] LABS: Blood Urea Nitrogen 18 mg/dl (7-17); Estimated Glomerular Filt Rate 53 ml/min (>60); GFR (African American) 64 ML/MIN (>60)
[2024-02-20 09:15] VITALS: BMI 44.1
[2024-02-20 09:20] LABS: Creatinine Clearance Estimated 56 mL/min (50-200)
[2024-02-20 09:21] VITALS: BP 130/62; PULSE 65; RESP 18; O2SAT 98
[2024-02-20 10:20] VITALS: BP 135/77; PULSE 66; RESP 16; O2SAT 99
[2024-02-20] MEDS: NITROGLYCERIN 0.4MG SL TABLET SL (10:20)
[2024-02-20 10:26] VITALS: BP 130/95; PULSE 65; RESP 16; O2SAT 98
[2024-02-20 10:30] VITALS: BP 111/70; PULSE 69; O2SAT 96
[2024-02-20 10:37] VITALS: BP 108/60; PULSE 73; O2SAT 92
[2024-02-20 10:43] VITALS: BP 104/54; PULSE 69; RESP 16; O2SAT 98
[2024-02-20] MEDS: IOPAMIDOL-370 (76%);100ML BOTTLE 85 ML IV (11:23)
[2024-02-20] MEDS: SODIUM CHLORIDE 0.9% 10ML SYR (RAD ONLY) 10 ML IV (11:23)
== END 2024-02-20 10:45 | disposition home or self-care (01) ==
PROVIDERS: Obstetrics & Gynecology; PCP Nurse Practitioner Family; Visit Provider Nurse Practitioner Family
DX: R07.89 Other chest pain (principal); R06.02 Shortness of breath; R94.39 Abnormal result of other cardiovascular function study
CPT/HCPCS: 36415; 75574; 82565; 84520; Q9967

== ENCOUNTER 2024-03-11 12:36 | Outpatient (CLI) | payer OTHER, SELFPAY ==
[2024-03-11] MEDS: ALBUTEROL 0.083% 2.5 MG/3 ML NEB IH (15:36)
== END 2024-03-11 23:59 | disposition home or self-care (01) ==
LOC: RT 12:37
PROVIDERS: PCP Nurse Practitioner Family; Visit Provider Nurse Practitioner Family
DX: R06.02 Shortness of breath (principal)
CPT/HCPCS: 94060; 94618; 94726; 94729; J7613

== ENCOUNTER 2024-07-09 16:15 | Outpatient (CLI) | payer OTHER, SELFPAY ==
[2024-07-09 18:04] LABS: Basophils # 0.1 K/mm3 (0-0.2); Basophils % 0.6 % (0.1-2.0); Eosinophils # 0.4 K/mm3 (0.0-0.4); Eosinophils % 3.2 % (0.1-12.0); Hematocrit 36.1 % (37.0-47.0); Hemoglobin 11.3 g/dL (12.2-16.2); Lymphocytes # 2.4 K/mm3 (0.7-4.5); Lymphocytes % 19.5 % (10-50); Mean Corpuscular HGB Conc 31.3 g/dL (31.8-35.4); Mean Corpuscular Hemoglobin 27.1 pg (27.0-31.2); Mean Corpuscular Volume 86.6 fl (81-99); Mean Platelet Volume 10.1 fl (7.4-10.4); Monocytes # 0.7 K/mm3 (0.1-1.0); Monocytes % 5.3 % (1.7-9.3); Neutrophils # 8.8 K/mm3 (1.8-7.8); Platelet Count 448 K/mm3 (142-424); Red Blood Count 4.17 M/mm3 (4.20-5.40); Red Cell Distribution Width 14.4 % (11.5-17.5); White Blood Count 12.4 K/mm3 (4.8-10.8)
[2024-07-09 19:24] LABS: Alanine Aminotransferase 23 U/L (12-78); Albumin Level 4.3 g/dl (3.5-5.0); Albumin/Globulin Ratio 1.7 (1.1-1.8); Alkaline Phosphatase 100 U/L (38-126); Aspartate Amino Transferase 27 U/L (14-36); Bilirubin,Total 0.3 mg/dl (0.2-1.3); Blood Urea Nitrogen 10 mg/dl (7-17); Calcium 9.6 mg/dl (8.4-10.2); Carbon Dioxide 30 mmol/L (22.0-30.0); Chloride 99 mmol/L (98-107); Chol/HDL Ratio 3.4 (1-3.5); Cholesterol 196 mg/dl (140-200); Estimated Glomerular Filt Rate 53 ml/min (>60); GFR (African American) 64 ML/MIN (>60); Globulin 2.6 g/dL (1.3-3.2); Glucose 101 mg/dl (74-100); HDL Cholesterol 57 mg/dl (40-60); Iron 61 ug/dL (37-170); Sodium 139 mmol/L (136-145); Total Protein,Serum 6.9 g/dl (6.3-8.2); Triglycerides 132 mg/dl (30-150); VLDL Cholesterol 26 mg/dL (0-40)
[2024-07-09 19:35] LABS: 25-OH Vitamin D, Total 25.2 ng/mL (30-100)
[2024-07-09 19:41] LABS: Direct LDL Cholesterol 87.32 mg/dL (100-129); Total Iron Binding Capacity 414 ug/dL (265-497)
[2024-07-09 19:42] LABS: T4 (Thyroxine) 10.5 ug/dl (5.53-11.0)
[2024-07-09 19:56] LABS: Thyroid Stimulating Hormone 2.47 uIU/mL (0.465-4.68)
[2024-07-09 19:59] LABS: Ferritin 8.53 ng/ml (6.24-137)
[2024-07-09 20:15] LABS: Vitamin B12 818 pg/mL (239-931)
[2024-07-09 20:25] LABS: Folate 4.75 ng/mL
[2024-07-11 07:12] LABS: Triiodothyronine (T3) Free 2.9 pg/mL (2.0-4.4)
[2024-07-14 14:21] LABS: Triiodothyronine (T3) Reverse 23.3
== END 2024-07-09 23:59 | disposition home or self-care (01) ==
LOC: LAB.DROPOF 07-10 09:58
PROVIDERS: PCP Nurse Practitioner Family; Visit Provider Nurse Practitioner Family
DX: I10 Essential (primary) hypertension (principal); E66.01 Morbid (severe) obesity due to excess calories; Z68.41 Body mass index [BMI] 40.0-44.9, adult; J45.40 Moderate persistent asthma, uncomplicated; E55.9 Vitamin D deficiency, unspecified; I25.10 Atherosclerotic heart disease of native coronary artery without angina pectoris
CPT/HCPCS: 80053; 80061; 82306; 82607; 82728; 82746; 83540; 83550; 84436; 84443; 84481; 84482; 85025

== ENCOUNTER 2024-07-19 07:42 | Outpatient (CLI) | payer OTHER, SELFPAY ==
--- NOTE | 2024-07-19 07:45 | XR_ITS ---
FINAL REPORT CLINICAL HISTORY: Bilat hip pain FINDINGS: LEFT HIP 3 views of the left hip are obtained. There is no acute fracture or dislocation. Visualized joint spaces are normally aligned. There is no acute soft tissue abnormality. IMPRESSION: No acute bony abnormality. Reviewed, Interpreted and Dictated by Jay Levine MD Transcribed by Annetta Charles Authenticated and [facility]
--- NOTE | 2024-07-19 07:45 | MR_ITS ---
FINAL REPORT TECHNIQUE: Multiplanar MR without contrast CLINICAL HISTORY: LBP x1.5 years numbness in left leg x2 months COMPARISON: none FINDINGS: Sagittal images show normal vertebral height. Alignment is normal. There is a hemangioma within the L1 vertebral body. 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 L1-2: Unremarkable L2-3: Mild annular disc bulge. Borderline central canal stenosis. L3-4: Moderate annular disc bulge. Moderate size right lateral canal disc protrusion. Severe right lateral recess stenosis with compromise of the right L4 nerve root. Moderate central canal stenosis. Mild bilateral neuroforaminal narrowing. L4-5: Mild annular disc bulge. Moderate facet arthropathy. Moderate central canal stenosis. Mild bilateral neuroforaminal narrowing. L5-S1: Mild annular disc bulge asymmetric to the left. Moderate facet arthropathy. Moderate central canal stenosis and bilateral neuroforaminal narrowing. IMPRESSION: Significant canal stenosis and neuroforaminal narrowing at multiple levels of the lower lumbar spine related to degenerative discs and degenerative small bony spinal canal. Findings are more pronounced at L3-4. Reviewed, Interpreted and Dictated by Jay Levine MD Transcribed by Maria Dejesus Authenticated and [facility]
== END 2024-07-19 23:59 | disposition home or self-care (01) ==
LOC: RAD 07:44
PROVIDERS: PCP Nurse Practitioner Family; Visit Provider Nurse Practitioner Family
DX: M25.551 Pain in right hip (principal); M25.552 Pain in left hip; M54.16 Radiculopathy, lumbar region
CPT/HCPCS: 72148; 73502